=== PATIENT | female | born 1945 | race Caucasian/White ===

== ENCOUNTER 2019-02-03 11:35 | Inpatient (IN) | payer OTHER ==
[2019-02-03 12:43] VITALS: BMI 15.0
--- NOTE | 2019-02-03 13:02 | HP ---
"CIWA Score Nausea/Vomitin-No Nausea/No Vomiting Muscle Tremors: None Anxiety: 0-No Anxiety, at Ease Agitation: 1-Slight > Activity Paroxysmal Sweats: No Perspiration Orientation: 0-Oriented Tacttile Disturbances: 0-None Auditory Disturbances: 0-None Visual Disturbances: 0-None Headache: 0-None Present CIWA-Ar Total Score: 1 - Admission Criteria OASAS Guidelines: Admission for Medically Managed Detox: Requires at least one of the followin. CIWA greater than 12 2. Seizures within the past 24 hours 3. Delirium tremens within the past 24 hours 4. Hallucinations within the past 24 hours 5. Acute intervention needed for co occurring medical disorder 6. Acute intervention needed for co occurring psychiatric disorder 7. Severe withdrawal that cannot be handled at a lower level of care (continued vomiting, continued diarrhea, abnormal vital signs) requiring intravenous medication and/or fluids 8. Admission ROS [facility] Allergies/Adverse Reactions: Allergies Allergy/AdvReac Type Severity Reaction Status Date / Time pantoprazole [From Protonix] Allergy Severe Swelling Verified 02/03/19 12:20 Penicillins Allergy Severe Swelling Verified 02/03/19 12:20 History of Present Illness: This report was requested by: Janett Brooks | Reference #: [id number] Others' Prescriptions Patient Name: Anabell Shrestha Date: 1945 Address: [address] [place] [address] Sex: Female Rx Written Rx Dispensed Drug Quantity Days Supply Prescriber Name 01/01/2019 01/29/2019 zolpidem tartrate 10 mg tablet 30 30 Luis York 01/01/2019 01/01/2019 alprazolam 0.5 mg tablet 90 30 SangianLuis garcía 01/01/2019 01/01/2019 zolpidem tartrate 10 mg tablet 30 30 LavianliviLuis 07/11/2018 12/01/2018 tramadol hcl 50 mg tablet 60 30 SangianLuis garcía 07/11/2018 12/01/2018 zolpidem tartrate 10 mg tablet 30 30 Sangianricky, Luis 07/11/2018 11/02/2018 tramadol hcl 50 mg tablet 60 30 SangianLuis garcía 07/11/2018 11/02/2018 zolpidem tartrate 10 mg tablet 30 30 Luis York 10/28/2018 10/29/2018 hydrocodone-acetaminophen 5-300 mg tablet 20 5 Liborio Sharp MD 10/04/2018 10/06/2018 alprazolam 0.5 mg tablet 90 30 Lavianlivi, Luis 07/11/2018 10/02/2018 tramadol hcl 50 mg tablet 60 30 Lavianlivi , Luis 07/11/2018 10/02/2018 zolpidem tartrate 10 mg tablet 30 30 Lavianlivi, Luis 07/11/2018 09/06/2018 zolpidem tartrate 10 mg tablet 30 30 Lavianlivi, Luis 07/11/2018 08/24/2018 tramadol hcl 50 mg tablet 60 30 Lavianlivi , Luis 08/15/2018 08/15/2018 alprazolam 0.5 mg tablet 90 30 Lavianlivi, Luis 07/11/2018 08/08/2018 zolpidem tartrate 10 mg tablet 30 30 Lavianlivi, Luis 07/27/2018 07/27/2018 lyrica 75 mg capsule 10 5 Harley Arenas MD 07/11/2018 07/11/2018 tramadol hcl 50 mg tablet 60 30 Lavianlivi , Luis 07/11/2018 07/11/2018 zolpidem tartrate 10 mg tablet 30 30 Lavianlivi, Luis 07/11/2018 07/11/2018 alprazolam 0.5 mg tablet 90 30 Lavianlivi, Luis 01/15/2018 06/13/2018 zolpidem tartrate 10 mg tablet 30 30 Lavianlivi, Luis 01/15/2018 05/17/2018 zolpidem tartrate 10 mg tablet 30 30 Lavianlivi, Luis 05/16/2018 05/17/2018 tramadol hcl 50 mg tablet 90 30 Carine Rowellndra 04/25/2018 04/25/2018 tramadol hcl 50 mg tablet 60 30 Lavianlivi , Luis 04/25/2018 04/25/2018 alprazolam 0.5 mg tablet 90 30 Lavianlivi, Luis 01/15/2018 04/19/2018 zolpidem tartrate 10 mg tablet 30 30 Lavianlivi, Luis 01/15/2018 03/22/2018 zolpidem tartrate 10 mg tablet 30 30 Lavianlivi, Luis 03/20/2018 03/22/2018 tramadol hcl 50 mg tablet 10 3 Neto Luis Ferris MD 03/16/2018 03/17/2018 acetaminophen-cod #3 tablet 60 30 Bing Rubin (SARA) 02/27/2018 02/27/2018 diazepam 5 mg tablet 10 10 Sanghieuchhayache Luis 01/15/2018 02/21/2018 zolpidem tartrate 10 mg tablet 30 30 SanghieuLuis garcía 02/16/2018 02/16/2018 tramadol hcl 50 mg tablet 59 30 Bing Rubin (SARA) * - Drugs marked with an asterisk are compound drugs. If the compound drug is made up of more than one controlled substance, then each controlled substance will be a separate row in th pt here requesting assistance w/ overuse of AMbien , claims 1- mo supply finished in 2 weeks , denies seizurs, blackouts or tremors if not taking meds in the 2 remaining weeks until the next rx . Claims she is not taking Xanax . PMHx : gastritis, HTN , OP , constipation , chronic back pain pSHx : hemorrhoids , appy psych : insomnia Exam Limitations: No Limitations - Ebola screening Have you traveled outside of the country in the last 21 days: No (N) Have you had contact with anyone from an Ebola affected area: No Do you have a fever: No - Review of Systems Constitutional: No Symptoms Reported EENT: reports: Difficulty Swallowing (states saw ENT told nl, states sometimes has difficulty swallowing pills) Respiratory: reports: No Symptoms reported Cardiac: reports: No Symptoms Reported GI: reports: Poor Appetite : reports: No Symptoms Reported Musculoskeletal: reports: See HPI, Back Pain Integumentary: reports: No Symptoms Reported Neuro: reports: No Symptoms reported Endocrine: reports: No Symptoms Reported Psychiatric: reports: Orientated x3, Depressed Patient History - Smoking Cessation Smoking history: Smoker current status UNK - Substances abused Other Other (specify): aMBIEN 10MG PILLS Substance route: Oral Frequency: Daily Amount used: 6-10 PILLS OF 10MG Age of first use: 47 Date of last use: 02/03/19 Family Disease History - Family Disease History Family History: Denies Admission Physical Exam BHS - Vital Signs Vital Signs: Vital Signs - 24 hr 02/03/19 12:33 Temperature 97.9 F Pulse Rate 74 Respiratory 18 Rate Blood Pressure 101/67 - Physical General Appearance: Yes: Mild Distress, Cachetic, Thin HEENTM: Yes: Normocephalic, Normal Voice, Other (poor dentitiion, many missing teeth) Respiratory: Yes: Lungs Clear, Normal Breath Sounds, No Respiratory Distress, No Accessory Muscle Use Neck: Yes: No masses,lesions,Nodules, Trachea in good position Cardiology: Yes: Regular Rhythm, Regular Rate, S1, S2 Abdominal: Yes: Non Tender, Soft Musculoskeletal: Yes: Gait Steady Extremities: Yes: Normal Range of Motion, Non-Tender Neurological: Yes: Fully Oriented, Alert, Motor Strength 5/5 Integumentary: Yes: Warm - Diagnostic (1) Sedative, hypnotic or anxiolytic abuse Current Visit: Yes Status: Acute Breathalyzer - Breathalyzer Breathalyzer: 0 Inpatient Rehab Admission - Rehab Decision to Admit Inpatient rehab admission?: Yes - Initial Determination Are CD services needed?: Yes Free of communicable disease: Yes Not in need of hospitalization: Yes - Rehab Admission Criteria Previous failed treatment: No Poor recovery environment: No Comorbidities: No Lacks judgement: Yes Patient is meeting Inpatient Rehab admission criteria:: Yes"
[2019-02-03] MEDS ORDERED: guaiFENesin 200 MG/10 ML 10 ML UNIT-DOSE CUPS PO PRN (13:47)
[2019-02-03] MEDS ORDERED: ACETAMINOPHEN 325 MG TABLET (FP) PO PRN ×2 (13:47→21:15)
[2019-02-03] MEDS ORDERED: MENTHOL/PHENOL 1 EACH UD MM PRN (13:47)
[2019-02-03] MEDS ORDERED: IBUPROFEN 400 MG TABLET (FP) PO PRN (13:47)
[2019-02-03] MEDS ORDERED: MAG HYDROX/AL HYDROX/SIMETH 30 ML UNIT-DOSE CUP PO PRN (13:47)
[2019-02-03] MEDS ORDERED: P-EPHED 60MG/TRIPROLIDI 2.5MG TABLET PO PRN (13:47)
[2019-02-03] MEDS ORDERED: hydrOXYzine PAMOATE 25 MG CAPSULE (FP) PO PRN (13:47)
[2019-02-03] MEDS ORDERED: MAGNESIUM HYDROX 2400MG/30ML ORAL SUSPENSION 30 ML CUP PO PRN (13:47)
[2019-02-03] MEDS ORDERED: MAGNESIUM CITRATE 300 ML BOTTLE PO PRN (13:47)
[2019-02-03 20:21] LABS: PH,URINE 6.5 (5.0-8.0); URINE APPEARANCE CLEAR; URINE BILIRUBIN NEGATIVE (NEGATIVE); URINE COLOR YELLOW; URINE GLUCOSE (UA) NEGATIVE (NEGATIVE); URINE KETONE NEGATIVE (NEGATIVE); URINE LEUK ESTERASE NEGATIVE (NEGATIVE); URINE NITRITE NEGATIVE (NEGATIVE); URINE PROTEIN NEGATIVE (NEGATIVE); URINE UROBILINOGEN 0.2 mg/dL (0.2-1.0)
[2019-02-03] MEDS ORDERED: METHOCARBAMOL 500 MG TABLET PO ONE (21:14)
[2019-02-03] MEDS ORDERED: MELATONIN 5 MG TABLETS PO PRN (22:00)
[2019-02-03] MEDS ORDERED: THIAMINE HCL 100 MG TABLET (FP) PO SCH (22:00)
[2019-02-03] MEDS: METHYL SALICYLATE/MENTHOL OINT 30 GM TUBE TP SCH (22:46)
[2019-02-03] MEDS ORDERED: LORazepam 2 MG/ML SDV VIAL IM ONE (23:20)
--- NOTE | 2019-02-03 23:28 | PN ---
S CIWA - CIWA Score Nausea/Vomitin-No Nausea/No Vomiting Muscle Tremors: 5 Anxiety: 7-Acute Panic/Severe Agitation: 7-Pacing/Thrashing Paroxysmal Sweats: 3 Orientation: 1-Uncertain about Date Tacttile Disturbances: 0-None Auditory Disturbances: 0-None Visual Disturbances: 3-Moderate Sensitivity Headache: 4-Moderately Severe CIWA-Ar Total Score: 30 BHS Progress Note (SOAP) Subjective: C/O MUSCLE PAINS, SHAKES, CHILLS, BRIGHT FLASHING LIGHTS, RESTLESSNESS "I FEEL LIKE I WANT TO RUN OUT OF MY SKIN" Objective: 02/03/19 23:23 SEEN OOB PACING ROOM AND UNIT DEPRESSED AFFECT CRYING A/O X2 UNSURE OF DATE. BUT KNOWS MONTH AND YEAR LEAH WALLER CV -TACHY CIWA 30 REPEAT UDS- NEGATIVE FOR ALL SCREENED SUBSTANCES Vital Signs - 24 hr 02/03/19 02/03/19 02/03/19 12:33 14:37 17:43 Temperature 97.9 F 97.3 F L 96.7 F L Pulse Rate 74 90 83 Respiratory 18 18 18 Rate Blood Pressure 101/67 144/93 130/80 02/03/19 02/03/19 21:32 22:10 Temperature 97.3 F L 97.4 F L Pulse Rate 90 101 H Respiratory 18 16 Rate Blood Pressure 144/93 150/91 Assessment: 02/03/19 23:25 73 Y.O FEMALE ADMITTED TO REHAB FOR AMBIEN ( TAKING ANYWHERE FROM 8-12 10 MG PILLS A DAY) ADDICTION NOW PRESENTS WITH C/O WITHDRAWAL SXS'. SHE IS NOTED PACING ON THE UNIT, RESTLESS, CRYING, ANXIOUS AND PANIC C/O MUSCLE TIGHTNESS AND HEADACHE SHE WAS GIVEN VISTARIL 5 HOURS AGO WITH OUT RELIEF. TYLENOL AND ROBAXIN WAS ALSO GIVEN WITH OUT ANY EFFECT. Plan: DC VISTARIL CASE DISCUSSED WITH BENITA SHOEMAKER-PSYCH WILL GIVE ATIVAN 0.5 MG IM NOW AND REEVALUATE. IF SX'S ARE UNRESOLVED OR WORSEN WILL CONSIDER TRANSFERRING CLIENT TO [facility] CONTINUE TO MONITOR CLOSELY Q 15 MIN CHECKS X4 FOR FIRST HOUR OF THE ATIVAN. NOTIFY PROVIDER OF WORSENING SX'S
[2019-02-04] MEDS ORDERED: traZODone HCL 50 MG TABLET (FP) PO ONE (01:02)
--- NOTE | 2019-02-04 02:58 | PN ---
[facility] Progress Note Note: PATIENT SEEN FOR ONGOING COMPLAINTS OF RESTLESS NESS, BODY ACHES-NOT NEW. REQUESTING ALL KINDS OF MEDS, TRAMADOL, AN INJECTION, AND OTHERS. SHE IS ALSO SHARING THAT HER SON INJECTS SOME STUFF THAT KEEPS HIM CALM AND SHE THINKS IT HEROIN. SHE IS RELUCTANT TO TAKE MEDS OFFERED , STATES SHE HAS ANY ALLERGY TO MOTRIN-RASH. SHE IN NOTED CRYING WHEN SHE IS OFFERED ALTERNATIVE MEDS/THERAPY. ? DRUG SEEKING BEHAVIOR SHE CONTINUES TO SEEK TRAMADOL AND AMBIEN OR SOME SORT OF INJECTION. SHE PRESENTS A/O X3. CONVERSING WELL WITH CALMNESS, BUT STARTS TO COMPLAIN WHEN NOT ENGAGED IN CONVERSATION. SHE WAS GIVEN TRAZODONE 50 MG 2 HOURS AGO AND CLIENT IS STILL AWAKE CRYING AND PACING. SHE IS REQUESTING HER PAMELOR -RX'ED BY PAIN MGMT PER THE CLIENT. STATES IT HELPS WITH HER PAIN, ALLOWING HER TO SLEEP. RX IS NOTED IN HER HOME PROFILE AND CLIENT STATES ITS WITH HER PERSONAL PROPERTY. SHE IS TO BE EVALUATED BY PSYCH IN THE MORNING CONTINUE TO MONITOR CLIENT REMAINS MEDICALLY STABLE AT THIS TIME. DENIES SI. DOES REPORT SOME VISUAL DISTURBANCES BUT VERY SHORT LIVED. C/O SPOTS ON HER HANDS AND THINGS POPPING OUT OF HER ELBOWS. CLIENT DOES VERBALIZE THAT THEY ARE NOT PRESENT WHEN ASKED. PROVIDE EMOTIONAL SUPPORT/ENCOURAGEMENT MAINTAIN SAFETY. EKG ORDERED THERE IS NONE ON FILE
--- NOTE | 2019-02-04 07:48 | PN ---
[facility] Progress Note Note: SEEN THIS MORNING AMBULATING UNIT ENGAGED IN CONVERSATION WITH OTHER CLIENTS. NAD Vital Signs Temperature 96.7 F L 02/04/19 06:24 Pulse Rate 103 H 02/04/19 06:24 Respiratory Rate 18 02/04/19 06:24 Blood Pressure 168/98 02/04/19 06:24 O2 Sat by Pulse Oximetry (%) ELEVATED B/P NOTED- CLIENT MEDICALLY STABLE EKG- WNL CLIENT ENDORSED TO DR. SOUSA AND BENITA SHOEMAKER
--- NOTE | 2019-02-04 09:29 | CONSULT ---
[facility] Psychiatric Consult - Data Date of interview: 02/04/19 Admission source: [facility] Identifying data: Patient is a 73 year old female, mother of five, domiciled, and is supported by [facility]. This is patient's first admission to detox at [facility]. Patient admitted to for ambien dependence. Substance Abuse History: - Substances abused. Other. Other (specify): aMBIEN 10MG PILLS. Substance route: Oral. Frequency: Daily. Amount used: 6- 10 PILLS OF 10MG. Age of first use: 47. Date of last use: 02/03/19 Medical History: gastritis, HTN , OP , constipation , chronic back pain Psychiatric History: Patient denies h/o psychiatric hospitalization and suicide attempt. Patient reports taking ambien since 1992 and as of the previous 4-5 months she reports taking approximately 60-70 mg of ambien daily. She reports left abdominal pain which has prevented her from sleeping and therefore has caused her to increase her ambien intake. She reports being prescribed xanax last year by a physician at [facility] although denies currently taking xanax. Ms. Shrestha states that the xanax was ordered to address her anxiety when her blood pressure increases although denies h/o anxiety/panic disorder. (questionable historian about anxiety history as she has received several prescriptions of benzodiazepines). She reports seeing a psychiatrist one time two years ago but is unable to recall the medication she was prescribed. Patient reports being prescribed nortriptyline but denies ever taking the medication. Patient focused on her left lower abdomial pain throughout the assessment. At present, patient is restless, slightly irritable, anxious secondary to withdrawal symptoms from ambien. Patient is not psychotic and does not currently present with depressive symptoms. Patient focused on staff managing her pain and on receiving additional ambien at this time. Ms. Shrestha denies thoughts or urges to hurt herself or others. Physical/Sexual Abuse/Trauma History: Patient denies h/o physical, sexual and emotional trauma. Currently focused on addressing left lower abdominal pain. Mental Status Exam - Mental Status Exam Alert and Oriented to: Time, Place, Person Cognitive Function: Fair Patient Appearance: Well Groomed (although presents with a thin frame) Mood: Anxious, Irritable (slightly irritable) Affect: Mood Congruent Patient Behavior: Restless Speech Pattern: Delayed Voice Loudness: Moderately Soft/Quiet Thought Process: Goal Oriented Thought Disorder: Not Present Hallucinations: Denies Suicidal Ideation: Denies Homicidal Ideation: Denies Insight/Judgement: Poor Sleep: Poorly Appetite: Fair Muscle strength/Tone: Normal Gait/Station: Normal Psychiatric Findings - Problem List ([place] 1, 2,3) (1) Substance-induced anxiety disorder Status: Acute (2) Sedative, hypnotic or anxiolytic abuse Status: Acute - Initial Treatment Plan Initial Treatment Plan: Psychoeducation provided. Patient admitted to detox as no bed was available in rehab. Patient scheduled to be admitted to rehab. Recommendation: If admitted to rehab should consider an ambien taper.
[2019-02-04] MEDS ORDERED: PATIENT'S OWN MEDICATION (NON-FORMULARY) (Lansoprazole [Prevacid] 30 MG) PO SCH (10:00)
[2019-02-04] MEDS ORDERED: PRENATAL VITAMINS W/ FOLIC ACID TABLET (FP) PO SCH (10:00)
[2019-02-04] MEDS ORDERED: PATIENT'S OWN MEDICATION (NON-FORMULARY) (Enalapril Maleate [Vasotec] 20 MG) PO SCH (10:00)
[2019-02-04] MEDS ORDERED: amLODIPine BESYLATE 10 MG TABLET (FP) PO SCH (10:00)
[2019-02-04] MEDS ORDERED: ENALAPRIL MALEATE 10 MG TABLET (FP) PO SCH (10:00)
--- NOTE | 2019-02-04 10:03 | EKG ---
Test Reason : Blood Pressure : / mmHG Vent. Rate : 089 BPM Atrial Rate : 089 BPM P-R Int : 134 ms QRS Dur : 072 ms QT Int : 366 ms P-R-T Axes : 078 071 077 degrees QTc Int : 445 ms NORMAL SINUS RHYTHM NORMAL ECG NO PREVIOUS ECGS AVAILABLE Confirmed by DENISE MARINELLI, PERLA ([id number]) on 02/04/2019 10:02:37 AM Referred By: Maryellen Terry Confirmed By:PERLA WALKER MD
[2019-02-04 10:39] LABS: HEMATOCRIT 33.8 % (32.4-45.2); HEMOGLOBIN 11.7 GM/dL (10.7-15.3); MCH 31.8 pg (25.7-33.7); MCHC 34.5 g/dl (32.0-36.0); MEAN CELL VOLUME 92.2 fl (80-96); PLATELET COUNT 230 K/MM3 (134-434); RBC 3.66 M/mm3 (3.60-5.2); RDW 14.7 % (11.6-15.6); WHITE BLOOD COUNT 6.6 K/mm3 (4.0-10.0)
--- NOTE | 2019-02-04 10:50 | DS ---
[facility] Detox Discharge Summary Admission Date: 02/03/19 Discharge Date: 02/04/19 - History Additional Comments: 73 years old female admitted on 02/03/19 for ambient rehabilitation patient refuses rehab opportunity that she wants to go home patient c/o body pain, refuses to go to rehab revelation case presented in team meeting that the counselor reached daughter will seed cone picker patient around 1 pm today back to primary care provider for pain management patient stated that one of her daughter treats her bad and is inappropriate counselor call adult protection agency report the incident patient reported that one of her daughter "bernardino" very caring toward her counselor call "Bernardino" who arrived to [facility] to seed cone picker patient to home round 315pm patient discharged to home in care of bernardino the good daughter patient had one minute seizure with postdictal confusion no viable injury noted ambulance was called freelance copywriter attempted to give ER report x 3 around [phone] and 1538 no answer - Physical Exam Results Vital Signs: Vital Signs Temperature 97.6 F 02/04/19 09:10 Pulse Rate 102 H 02/04/19 09:10 Respiratory Rate 16 02/04/19 09:10 Blood Pressure 154/97 02/04/19 09:10 O2 Sat by Pulse Oximetry (%) Pertinent Admission Physical Exam Findings: ambient withdrawal sx Laboratory Last Values WBC 6.6 K/mm3 (4.0-10.0) 02/04/19 07:00 RBC 3.66 M/mm3 (3.60-5.2) 02/04/19 07:00 Hgb 11.7 GM/dL (10.7-15.3) 02/04/19 07:00 Hct 33.8 % (32.4-45.2) 02/04/19 07:00 MCV 92.2 fl (80-96) 02/04/19 07:00 MCH 31.8 pg (25.7-33.7) 02/04/19 07:00 MCHC 34.5 g/dl (32.0-36.0) 02/04/19 07:00 RDW 14.7 % (11.6-15.6) 02/04/19 07:00 Plt Count 230 K/MM3 (134-434) 02/04/19 07:00 MPV 8.0 fl (7.5-11.1) 02/04/19 07:00 Sodium 131 mmol/L (136-145) L 02/04/19 07:00 Potassium 3.6 mmol/L (3.5-5.1) 02/04/19 07:00 Chloride 92 mmol/L (98-107) L 02/04/19 07:00 Carbon Dioxide 34 mmol/L (21-32) H 02/04/19 07:00 Anion Gap 5 MMOL/L (8-16) L 02/04/19 07:00 BUN 16.5 mg/dL (7-18) 02/04/19 07:00 Creatinine 0.9 mg/dL (0.55-1.3) 02/04/19 07:00 Est GFR (CKD-EPI)AfAm 74.56 02/04/19 07:00 Est GFR (CKD-EPI)NonAf 64.33 02/04/19 07:00 Random Glucose 115 mg/dL (74-106) H 02/04/19 07:00 Calcium 9.6 mg/dL (8.5-10.1) 02/04/19 07:00 Total Bilirubin 0.5 mg/dL (0.2-1) 02/04/19 07:00 AST 28 U/L (15-37) 02/04/19 07:00 ALT 46 U/L (13-61) 02/04/19 07:00 Alkaline Phosphatase 103 U/L (45-117) 02/04/19 07:00 Total Protein 7.8 g/dl (6.4-8.2) 02/04/19 07:00 Albumin 4.7 g/dl (3.4-5.0) 02/04/19 07:00 Urine Color Yellow 02/03/19 14:55 Urine Appearance Clear 02/03/19 14:55 Urine pH 6.5 (5.0-8.0) 02/03/19 14:55 Ur Specific Sims 1.016 (1.010-1.035) 02/03/19 14:55 Urine Protein Negative (NEGATIVE) 02/03/19 14:55 Urine Glucose (UA) Negative (NEGATIVE) 02/03/19 14:55 Urine Ketones Negative (NEGATIVE) 02/03/19 14:55 Urine Blood Negative (NEGATIVE) 02/03/19 14:55 Urine Nitrite Negative (NEGATIVE) 02/03/19 14:55 Urine Bilirubin Negative (NEGATIVE) 02/03/19 14:55 Urine Urobilinogen 0.2 mg/dL (0.2-1.0) 02/03/19 14:55 Ur Leukocyte Esterase Negative (NEGATIVE) 02/03/19 14:55 POC Urine HCG, Qual Negative 02/03/19 21:38 RPR Titer Nonreactive (NONREACTIVE) 02/04/19 07:00 lab noted - Treatment Hospital Course: Detox Protocol Followed, Detoxed Safely, Responded well, Discharged Condition Good, Rehab Referral Accepted Patient has Accepted a Rehab Referral to: return home with Bernardino - Medication Discharge Medications: Ambulatory Orders Amlodipine Besylate 10 mg PO DAILY 02/03/19 Cholecalciferol (Vitamin D3) [Vitamin D3] 5,000 unit PO DAILY 02/03/19 Enalapril Maleate [Vasotec] 20 mg PO DAILY 02/03/19 Lansoprazole [Prevacid] 30 mg PO DAILY 02/03/19 Metoprolol Succinate [Toprol Xl -] 50 mg PO DAILY 02/03/19 Nortriptyline HCl [Pamelor -] 50 mg PO HS 02/03/19 Zolpidem Tartrate [Ambien] 10 mg PO DAILY 02/03/19 traMADol HCL [Ultram -] 50 mg PO BID 02/03/19 - Diagnosis (1) Hypertension Current Visit: Yes Status: Chronic (2) Chronic pain Current Visit: Yes Status: Chronic Qualifiers: Chronic pain type: other chronic pain Qualified Code(s): G89.29 - Other chronic pain (3) GERD (gastroesophageal reflux disease) Current Visit: Yes Status: Chronic Qualifiers: Esophagitis presence: without esophagitis Qualified Code(s): K21.9 - Gastro -esophageal reflux disease without esophagitis (4) Insomnia disorder Current Visit: Yes Status: Chronic Qualifiers: Insomnia type: unspecified Qualified Code(s): G47.00 - Insomnia, unspecified (5) Ambien use disorder, mild, abuse Current Visit: Yes Status: Chronic - AMA Did Patient Leave Against Medical Advice: No
[2019-02-04 10:54] LABS: ALBUMIN 4.7 g/dl (3.4-5.0); BILIRUBIN,TOTAL 0.5 mg/dL (0.2-1); BLOOD UREA NITROGEN 16.5 mg/dL (7-18); CALCIUM 9.6 mg/dL (8.5-10.1); CREATININE 0.9 mg/dL (0.55-1.3); POTASSIUM 3.6 mmol/L (3.5-5.1); TOT PROT 7.8 g/dl (6.4-8.2)
[2019-02-04] MEDS: METHYL SALICYLATE/MENTHOL OINT 30 GM TUBE TP SCH (13:24)
[2019-02-04 13:47] VITALS: BP 163/102; PULSE 87; TEMP 97.7
[2019-02-04] MEDS ORDERED: LIDOCAINE 5% TOPICAL PATCH TP SCH (14:15)
[2019-02-04] MEDS ORDERED: LIDOCAINE PATCH REMOVAL MC SCH (22:00)
== END 2019-02-04 15:00 | disposition home or self-care (01) | DRG 897 ==
LOC: YASAS 11:35 → Y3N 14:16
PROVIDERS: ADMIT Surgery; ATTEND Surgery
PROC: HZ2ZZZZ Detoxification Services for Substance Abuse Treatment (ICD-10-PCS; principal; 2019-02-03)
DX: F13.230 Sedative, hypnotic or anxiolytic dependence with withdrawal, uncomplicated (principal); F19.280 Other psychoactive substance dependence with psychoactive substance-induced anxiety disorder; I10 Essential (primary) hypertension; M54.9 Dorsalgia, unspecified; G89.29 Other chronic pain; K21.9 Gastro-esophageal reflux disease without esophagitis; G47.00 Insomnia, unspecified; Z88.0 Allergy status to penicillin
CPT/HCPCS: 36415; 80053; 81003; 81025; 85027; 86593; 93005; 93010

== ENCOUNTER 2019-02-04 16:02 | Inpatient (IN) | payer OTHER ==
--- NOTE | 2019-02-04 16:46 | PDOC ---
Attending Attestation - Resident Resident Name: AnabellMichael - ED Attending Attestation I have performed the following: I have examined & evaluated the patient, The case was reviewed & discussed with the resident, I agree w/resident's findings & plan, Exceptions are as noted - HPI HPI: 02/04/19 16:43 73 yo female BIBA from [facility] detox after having a seizure/ She also has c/o chest pain cachetic ,alert 73 yo female head ncat eyes melodie eomi neck no midline tenderness lungs cta b/l cvs [id number] extremities no deformities skin warm and dry neuro alert,conversant,moving all extremities - Physicial Exam PE: 02/05/19 02:20 please see physical exam above - Medical Decision Making 02/04/19 16:46 73 yo female w h/o ambien dependence had a szs while being weaned from ambien 02/04/19 18:15 patient did have her labs drawn earlier today at [facility] and these lab findings were reviewed. Since the patient started to have complaint of chest pain. Cardiac enzymes and EKG will be pursued 02/04/19 21:04 first troponin was negative pt is behaving very altered and has been taken to radiology for ct scan of head ,will obtain urine tox screen also
--- NOTE | 2019-02-04 17:09 | PDOC ---
History of Present Illness - General Chief Complaint: Seizure Stated Complaint: SEIZURE Time Seen by Provider: 02/04/19 16:42 History Source: Patient Exam Limitations: No Limitations - History of Present Illness Initial Comments: 73 yo F with a hx of gastritis, HTN, osteoporosis, and insomnia (on zanatax) presents to the emergency department from [facility] after a seizure event that was witnessed lasting for 1 minute. Per the records, the patient was brought to [facility] yesterday for benzo detoxification. The patient did not wish to stay for rehabilitation and was to be discharged from [facility]. Patient did not hit her head. Denies hx of seizures. The patient 02/05/19 00:23 02/05/19 00:36 Past History - Past Medical History Allergies/Adverse Reactions: Allergies Allergy/AdvReac Type Severity Reaction Status Date / Time pantoprazole [From Protonix] Allergy Severe Swelling Verified 02/04/19 16:41 Penicillins Allergy Severe Swelling Verified 02/04/19 16:41 Home Medications: Ambulatory Orders Amlodipine Besylate 10 mg PO DAILY 02/03/19 Cholecalciferol (Vitamin D3) [Vitamin D3] 5,000 unit PO DAILY 02/03/19 Enalapril Maleate [Vasotec] 20 mg PO DAILY 02/03/19 Lansoprazole [Prevacid] 30 mg PO DAILY 02/03/19 Metoprolol Succinate [Toprol Xl -] 50 mg PO DAILY 02/03/19 Nortriptyline HCl [Pamelor -] 50 mg PO HS 02/03/19 Zolpidem Tartrate [Ambien] 10 mg PO DAILY 02/03/19 traMADol HCL [Ultram -] 50 mg PO BID 02/03/19 Asthma: No Cardiac Disorders: No COPD: No Diabetes: No GI Disorders: Yes Disorders: No HTN: Yes Kidney Stones: Yes Seizures: No - Surgical History Abdominal Surgery: No Appendectomy: Yes (at 32 years old) Cardiac Surgery: No Cholecystectomy: No Lung Surgery: No Neurologic Surgery: No Orthopedic Surgery: No - Suicide/Smoking/Psychosocial Hx Smoking History: Never smoked Have you smoked in the past 12 months: No Information on smoking cessation initiated: No Hx Alcohol Use: No Drug/Substance Use Hx: No Hx Substance Use Treatment: No *Physical Exam - Vital Signs Last Vital Signs Temp Pulse Resp BP Pulse Ox 98.4 F 84 16 145/93 100 02/04/19 16:10 02/04/19 16:10 02/04/19 16:10 02/04/19 16:10 02/04/19 16:10 ED Treatment Course - RADIOLOGY Radiology Studies Ordered: Category Date Time Status HEAD CT WITHOUT CONTRAST [CT] Stat CT Scan 02/04/19 17:00 Ordered
[2019-02-04 22:56] LABS: EPI CELLS 1.4 /HPF (0-5/HPF); HYALINE CASTS 1 /lpf (0-8); PH,URINE 7.5 (5.0-8.0); URINE APPEARANCE CLEAR; URINE BACTERIA 15.2 /hpf (NEGATIVE); URINE BILIRUBIN NEGATIVE (NEGATIVE); URINE COLOR YELLOW; URINE GLUCOSE (UA) NEGATIVE (NEGATIVE); URINE KETONE NEGATIVE (NEGATIVE); URINE LEUK ESTERASE NEGATIVE (NEGATIVE); URINE NITRITE NEGATIVE (NEGATIVE); URINE PROTEIN 2+ (NEGATIVE); URINE RBC 1 /hpf (0-4); URINE UROBILINOGEN 0.2 mg/dL (0.2-1.0); URINE WBC 1 /hpf (0-5)
[2019-02-04 23:19] LABS: COCAINE, UR NEGATIVE ng/ml (CUTOFF=300); METHADONE, UR NEGATIVE ng/ml (CUTOFF=300); OPIATES, URI NEGATIVE ng/ml (CUTOFF=300); PHENCYCLIDINE,URINE NEGATIVE ng/ml (CUTOFF=25); URINE AMPHETAMINES NEGATIVE ng/ml (CUTOFF=500); URINE BARBITURATES NEGATIVE ng/ml (CUTOFF=200)
[2019-02-04 23:28] LABS: URINE BENZODIAZEPINES POSITIVE ng/ml (CUTOFF=200)
[2019-02-05] MEDS ORDERED: clonazePAM 0.5 MG TABLET PO ONE (00:47)
[2019-02-05] MEDS ORDERED: clonazePAM 0.5 MG TABLET ONE (00:59)
[2019-02-05] MEDS ORDERED: SODIUM CHLORIDE 1,000 ML IV SCH (01:30)
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
[2019-02-05 02:23] LABS: ALLENS TEST POSITIVE
[2019-02-05 02:27] LABS: ARTERIAL BLD GAS O2 SATURATION 98.7 % (95-98); ARTERIAL BLOOD GAS BASE EXCESS 7.4 meq/l (-2-2); ARTERIAL BLOOD GAS PCO2 38.6 mmHg (35-45); ARTERIAL BLOOD GAS PO2 99.4 mmHg (80-105); ARTERIAL BLOOD GAS pH 7.51 (7.35-7.45)
[2019-02-05] MEDS: SODIUM CHLORIDE 1,000 ML IV SCH ×2 (02:50→08:46)
[2019-02-05 08:16] LABS: BASO % 0.6 % (0-2.0); EOS % 0.1 % (0-4.5); HEMATOCRIT 32.1 % (32.4-45.2); LYMPH % 16.5 % (8-40); MCH 31.8 pg (25.7-33.7); MCHC 34.3 g/dl (32.0-36.0); MEAN CELL VOLUME 92.5 fl (80-96); MEAN PLT VOLUME 7.4 fl (7.5-11.1); MONO % 9.1 % (3.8-10.2); NEUT % 73.7 % (42.8-82.8); RBC 3.47 M/mm3 (3.60-5.2); RDW 14.7 % (11.6-15.6); WHITE BLOOD COUNT 7.4 K/mm3 (4.0-10.0)
[2019-02-05 08:47] LABS: ALBUMIN 3.9 g/dl (3.4-5.0); BILIRUBIN,TOTAL 0.9 mg/dL (0.2-1); BLOOD UREA NITROGEN 14.8 mg/dL (7-18); CALCIUM 9.1 mg/dL (8.5-10.1); CREATININE 0.7 mg/dL (0.55-1.3); POTASSIUM 3.3 mmol/L (3.5-5.1); TOT PROT 6.8 g/dl (6.4-8.2)
[2019-02-05] MEDS ORDERED: POTASSIUM CHLORIDE TABS 20 MEQ TABLET.ER (FP) PO ONE ×2 (09:30→10:03)
[2019-02-05] MEDS: ENOXAPARIN NA (PORCINE) 40 MG/0.4 ML DISP.SYRIN SQ SCH (09:38)
[2019-02-05 09:47] LABS: PLATELET COUNT 217 K/MM3 (134-434)
[2019-02-05] MEDS ORDERED: chlordiazePOXIDE HCL 10 MG CAPSULE PO PRN (10:02)
[2019-02-05] MEDS: chlordiazePOXIDE HCL 25 MG CAPSULE PO SCH ×2 (13:29→21:39)
[2019-02-05] MEDS ORDERED: chlordiazePOXIDE HCL 25 MG CAPSULE ONE ×2 (13:29→20:36)
--- NOTE | 2019-02-05 15:48 | PN ---
Teaching Attending Note Name of Resident: Shay Kerr ATTENDING PHYSICIAN STATEMENT I saw and evaluated the patient. I reviewed the resident's note and discussed the case with the resident. I agree with the resident's findings and plan as documented. SUBJECTIVE: No fever or chills. no PINO . feels tired. CP ro SOB. no abd pain. but feels pressure in lower abd. reported pain with urination to the resident, but by further questioning, she meant the suprapubic pain and pressure . reports having a son and 2 daughters in [place]. she does feel safe at home. she does not feel threatened by her kids . No one in mistreating her or giving her drugs/meds /injections . reports taking lots of ambien every day OBJECTIVE: NAD , awake, alert. Lungs: CTAB CV: RRR Abd: soft, discomfort in suprapubic discomfort. bladder is palpated in suprapubic area, 2 cm below the umbilicus. Ext : no edema Neuro: EOMI, round equal pupils, reactive to light. no facial droop. strength 5/ 5 in upper and lower extremities proximally and distally. reflexes 1+ biceps and knee jerk b/l. Nl sensation to light touch. ASSESSMENT AND PLAN: 73 y/o lady with h/o HTN, GERD, gastritis, insomnia, she went to [facility] , and while planning to admit to rehab she had a witnessed seizure. 1- Seizure: suspect benzo withdrawal. Nl neuro exam now. awake. - hold off AED _ neuro consult - if neuro feels MRI is necessary , will obtain - start detox for Benzos - RPR neg . TSH NL 2- Substance abuse: - start Librium taper - cont to monitor - [place] not give ambien 3- Suprapbubic discomfort. distended bladder on CT scan. - will obtain bladder scan. - if retention is detected, then will place a anderson. - no evidence of UTI 4- elevated CPK, mild rhabdo, due to seizure activity. - IVF 5- H/o HTN: resume her home BP meds 6- DVT PX : Lovenox when ready, can return to [facility]
--- NOTE | 2019-02-05 16:46 | CON.NEURO ---
Consult - Alcohol/Substance Use Hx Alcohol Use: No - Smoking History Smoking history: Never smoked Have you smoked in the past 12 months: No Home Medications - Allergies Allergies/Adverse Reactions: Allergies Allergy/AdvReac Type Severity Reaction Status Date / Time pantoprazole [From Protonix] Allergy Severe Swelling Verified 02/04/19 16:41 Penicillins Allergy Severe Swelling Verified 02/04/19 16:41 - Home Medications Home Medications: Ambulatory Orders Amlodipine Besylate 10 mg PO DAILY 02/03/19 Cholecalciferol (Vitamin D3) [Vitamin D3] 5,000 unit PO DAILY 02/03/19 Enalapril Maleate [Vasotec] 20 mg PO DAILY 02/03/19 Lansoprazole [Prevacid] 30 mg PO DAILY 02/03/19 Metoprolol Succinate [Toprol Xl -] 50 mg PO DAILY 02/03/19 Nortriptyline HCl [Pamelor -] 50 mg PO HS 02/03/19 Zolpidem Tartrate [Ambien] 10 mg PO DAILY 02/03/19 traMADol HCL [Ultram -] 50 mg PO BID 02/03/19 Alprazolam 0.5 mg PO TID 02/05/19 Amitriptyline HCl [Elavil -] 25 mg PO DAILY 02/05/19 Tizanidine HCl 2 mg PO BID 02/05/19 Physical Exam-Neuro Vital Signs: Vital Signs Temperature 98.3 F 02/05/19 15:15 Pulse Rate 88 02/05/19 15:15 Respiratory Rate 18 02/05/19 07:45 Blood Pressure 140/85 02/05/19 15:15 O2 Sat by Pulse Oximetry (%) 100 02/05/19 15:15 Labs: CBC, BMP 02/05/19 07:46 02/05/19 07:46 Assessment/Plan CC New onset seizure HPI 73 Year old female history of HTN, Gastritis, Osteoporosis, insomnia. [place] takes ambien everyday and [facility] She was in there for ambien abuse. Paitent take 6-10 pills per day. Patient also uses tramadol. Patient has one episode of shaking , chills like feeling , and seizure lasted one minute. SH edid not have any tongue bite or incontinence. No account of post ictal confusion. Patient has ct head and it unremrakable. Patient never had any brain truma, encephalomalacia, no seizure or stroke in past. PAST MEDICAL HISTORY: Gastritis, HTN, osteoporosis, insomnia, GERD, hemorrhoids PAST SURGICAL HISTORY: Appendectomy and hemorrhoid related surgery Social History: Smoking: Unable to obtain Alcohol:Unable to obtain Drugs: Documented abuse of Zolpidem, Xanax, Tramadol Family History: Unable to obtain Allergies pantoprazole [From Protonix] Allergy (Severe, Verified 02/04/19 16:41) Swelling Penicillins Allergy (Severe, Verified 02/04/19 16:41) Swelling HOME MEDICATIONS: Home Medications Medication Instructions Recorded Amlodipine Besylate 10 mg PO DAILY 02/03/19 Cholecalciferol (Vitamin D3) 5,000 unit PO DAILY 02/03/19 [Vitamin D3] Enalapril Maleate [Vasotec] 20 mg PO DAILY 02/03/19 Lansoprazole [Prevacid] 30 mg PO DAILY 02/03/19 Metoprolol Succinate [Toprol Xl -] 50 mg PO DAILY 02/03/19 Nortriptyline HCl [Pamelor -] 50 mg PO HS 02/03/19 Zolpidem Tartrate [Ambien] 10 mg PO DAILY 02/03/19 traMADol HCL [Ultram -] 50 mg PO BID 02/03/19 ROS, FH is Unremarkable Neurological examiantion Alert oriented x 3, neck is supple eomi, pupils reactive, no face asymmetry moving all ext sensation is normal ct head unremarkable Assessment/Plan 73 year old female history of substance abuse and recently had ambien withdrawal. Most likley withdrawal leading to seizure. Patient would not require halfway AED. Plan: no need for AED - mri of brain can be obtained, and dont need to hold in hospital for mri and eeg - ambien withdrawal as per primary or psychiatry - will continue to follow , if patient is in hospital - Seizure precautiosn were discussedwith patient Thanking you so much Vikash Latif MD
--- NOTE | 2019-02-05 17:35 | PN ---
Physical Exam: SUBJECTIVE: Patient seen and examined by the bedside. OBJECTIVE: Vital Signs Period Temp Pulse Resp BP Sys/Quispe Pulse Ox Last 24 Hr 98.1 F-99.2 F 80-88 - 126-140/75-86 98-100 GENERAL: The patient is awake, alert, and fully oriented, in no acute distress. HEAD: Normal with no signs of trauma. EYES: PERRL, extraocular movements intact, sclera anicteric, conjunctiva clear. No ptosis. NECK: Trachea midline, full range of motion, supple. LUNGS: Decreased breath sounds B/L HEART: Regular rate and rhythm, S1, S2 without murmur, rub or gallop. ABDOMEN: Soft, mild tenderness in suprapubic region, distended EXTREMITIES: 2+ pulses, warm, well-perfused, no edema. NEUROLOGICAL: Cranial nerves II through XII grossly intact. Normal speech, gait not observed, 5/5 motor strength B/L PSYCH: Normal mood, normal affect. Laboratory Results - last 24 hr 02/04/19 02/04/19 02/04/19 17:42 22:30 22:30 WBC RBC Hgb Hct MCV MCH MCHC RDW Plt Count MPV Absolute Neuts (auto) Neutrophils % Lymphocytes % Monocytes % Eosinophils % Basophils % Nucleated RBC % Anticoagulation Therapy Puncture Site ABG pH ABG pCO2 at Pt Temp ABG pO2 at Pt Temp ABG HCO3 ABG O2 Sat (Measured) ABG O2 Content ABG Base Excess Franck Test O2 Delivery Device Oxygen Flow Rate Vent Mode Vent Rate Mechanical Rate Pressure Support Vent Sodium Potassium Chloride Carbon Dioxide Anion Gap BUN Creatinine Est GFR (CKD-EPI)AfAm Est GFR (CKD-EPI)NonAf Random Glucose Serum Osmolality Lactic Acid Calcium Magnesium Total Bilirubin AST ALT Alkaline Phosphatase Creatine Kinase 554 H Creatine Kinase Index 2.2 CK-MB (CK-2) 12.3 H Troponin I < 0.02 Total Protein Albumin TSH Urine Color Yellow Urine Appearance Clear Urine pH 7.5 Ur Specific [place] 1.008 L Urine Protein 2+ H Urine Glucose (UA) Negative Urine Ketones Negative Urine Blood 2+ H Urine Nitrite Negative Urine Bilirubin Negative Urine Urobilinogen 0.2 Ur Leukocyte Esterase Negative Urine WBC (Auto) 1 Urine RBC (Auto) 1 Urine Casts (Auto) 1 U Epithel Cells (Auto) 1.4 Urine Bacteria (Auto) 15.2 Salicylates Opiates Screen Negative Methadone Screen Negative Acetaminophen Barbiturate Screen Negative Phencyclidine Screen Negative Ur Amphetamines Screen Negative MDMA (Ecstasy) Screen Negative Benzodiazepines Screen Positive A* Cocaine Screen Negative U Marijuana (THC) Screen Negative 02/05/19 02/05/19 02/05/19 02:17 03:22 03:22 WBC RBC Hgb Hct MCV MCH MCHC RDW Plt Count MPV Absolute Neuts (auto) Neutrophils % Lymphocytes % Monocytes % Eosinophils % Basophils % Nucleated RBC % Anticoagulation Therapy No Result Required. Puncture Site Right radial ABG pH 7.51 H ABG pCO2 at Pt Temp 38.6 ABG pO2 at Pt Temp 99.4 ABG HCO3 30.7 H ABG O2 Sat (Measured) 98.7 H ABG O2 Content 15.8 ABG Base Excess 7.4 H Franck Test Positive O2 Delivery Device Room air Oxygen Flow Rate 21% Vent Mode No Result Required. Vent Rate No Result Required. Mechanical Rate No Result Required. Pressure Support Vent No Result Required. Sodium Potassium Chloride Carbon Dioxide Anion Gap BUN Creatinine Est GFR (CKD-EPI)AfAm Est GFR (CKD-EPI)NonAf Random Glucose Serum Osmolality Lactic Acid 1.2 Calcium Magnesium Total Bilirubin AST ALT Alkaline Phosphatase Creatine Kinase 745 H Creatine Kinase Index 1.5 CK-MB (CK-2) 11.0 H Troponin I Total Protein Albumin TSH Urine Color Urine Appearance Urine pH Ur Specific [place] Urine Protein Urine Glucose (UA) Urine Ketones Urine Blood Urine Nitrite Urine Bilirubin Urine Urobilinogen Ur Leukocyte Esterase Urine WBC (Auto) Urine RBC (Auto) Urine Casts (Auto) U Epithel Cells (Auto) Urine Bacteria (Auto) Salicylates Opiates Screen Methadone Screen Acetaminophen Barbiturate Screen Phencyclidine Screen Ur Amphetamines Screen MDMA (Ecstasy) Screen Benzodiazepines Screen Cocaine Screen U Marijuana (THC) Screen 02/05/19 02/05/19 02/05/19 03:22 03:22 03:22 WBC RBC Hgb Hct MCV MCH MCHC RDW Plt Count MPV Absolute Neuts (auto) Neutrophils % Lymphocytes % Monocytes % Eosinophils % Basophils % Nucleated RBC % Anticoagulation Therapy Puncture Site ABG pH ABG pCO2 at Pt Temp ABG pO2 at Pt Temp ABG HCO3 ABG O2 Sat (Measured) ABG O2 Content ABG Base Excess Franck Test O2 Delivery Device Oxygen Flow Rate Vent Mode Vent Rate Mechanical Rate Pressure Support Vent Sodium Potassium Chloride Carbon Dioxide Anion Gap BUN Creatinine Est GFR (CKD-EPI)AfAm Est GFR (CKD-EPI)NonAf Random Glucose Serum Osmolality 287 Lactic Acid Calcium Magnesium Total Bilirubin AST ALT Alkaline Phosphatase Creatine Kinase Creatine Kinase Index CK-MB (CK-2) 11.0 H Troponin I Total Protein Albumin TSH Urine Color Urine Appearance Urine pH Ur Specific [place] Urine Protein Urine Glucose (UA) Urine Ketones Urine Blood Urine Nitrite Urine Bilirubin Urine Urobilinogen Ur Leukocyte Esterase Urine WBC (Auto) Urine RBC (Auto) Urine Casts (Auto) U Epithel Cells (Auto) Urine Bacteria (Auto) Salicylates < 1.7 L Opiates Screen Methadone Screen Acetaminophen < 2.0 L Barbiturate Screen Phencyclidine Screen Ur Amphetamines Screen MDMA (Ecstasy) Screen Benzodiazepines Screen Cocaine Screen U Marijuana (THC) Screen 02/05/19 02/05/19 02/05/19 07:46 07:46 11:50 WBC 7.4 RBC 3.47 L Hgb 11.0 Hct 32.1 L MCV 92.5 MCH 31.8 MCHC 34.3 RDW 14.7 Plt Count 217 MPV 7.4 L Absolute Neuts (auto) 5.5 Neutrophils % 73.7 Lymphocytes % 16.5 Monocytes % 9.1 Eosinophils % 0.1 Basophils % 0.6 Nucleated RBC % 0 Anticoagulation Therapy Puncture Site ABG pH ABG pCO2 at Pt Temp ABG pO2 at Pt Temp ABG HCO3 ABG O2 Sat (Measured) ABG O2 Content ABG Base Excess Franck Test O2 Delivery Device Oxygen Flow Rate Vent Mode Vent Rate Mechanical Rate Pressure Support Vent Sodium 138 Potassium 3.3 L Chloride 99 Carbon Dioxide 30 Anion Gap 9 BUN 14.8 Creatinine 0.7 Est GFR (CKD-EPI)AfAm 101.03 Est GFR (CKD-EPI)NonAf 87.17 Random Glucose 87 Serum Osmolality Lactic Acid Calcium 9.1 Magnesium 2.0 Total Bilirubin 0.9 AST 33 ALT 34 Alkaline Phosphatase 97 Creatine Kinase 666 H Creatine Kinase Index 1.2 CK-MB (CK-2) 8.1 H Troponin I Total Protein 6.8 Albumin 3.9 TSH 0.38 Urine Color Urine Appearance Urine pH Ur Specific [place] Urine Protein Urine Glucose (UA) Urine Ketones Urine Blood Urine Nitrite Urine Bilirubin Urine Urobilinogen Ur Leukocyte Esterase Urine WBC (Auto) Urine RBC (Auto) Urine Casts (Auto) U Epithel Cells (Auto) Urine Bacteria (Auto) Salicylates Opiates Screen Methadone Screen Acetaminophen Barbiturate Screen Phencyclidine Screen Ur Amphetamines Screen MDMA (Ecstasy) Screen Benzodiazepines Screen Cocaine Screen U Marijuana (THC) Screen 02/05/19 11:50 WBC RBC Hgb Hct MCV MCH MCHC RDW Plt Count MPV Absolute Neuts (auto) Neutrophils % Lymphocytes % Monocytes % Eosinophils % Basophils % Nucleated RBC % Anticoagulation Therapy Puncture Site ABG pH ABG pCO2 at Pt Temp ABG pO2 at Pt Temp ABG HCO3 ABG O2 Sat (Measured) ABG O2 Content ABG Base Excess Franck Test O2 Delivery Device Oxygen Flow Rate Vent Mode Vent Rate Mechanical Rate Pressure Support Vent Sodium Potassium Chloride Carbon Dioxide Anion Gap BUN Creatinine Est GFR (CKD-EPI)AfAm Est GFR (CKD-EPI)NonAf Random Glucose Serum Osmolality Lactic Acid Calcium Magnesium Total Bilirubin AST ALT Alkaline Phosphatase Creatine Kinase Creatine Kinase Index CK-MB (CK-2) Cancelled Troponin I Total Protein Albumin TSH Urine Color Urine Appearance Urine pH Ur Specific [place] Urine Protein Urine Glucose (UA) Urine Ketones Urine Blood Urine Nitrite Urine Bilirubin Urine Urobilinogen Ur Leukocyte Esterase Urine WBC (Auto) Urine RBC (Auto) Urine Casts (Auto) U Epithel Cells (Auto) Urine Bacteria (Auto) Salicylates Opiates Screen Methadone Screen Acetaminophen Barbiturate Screen Phencyclidine Screen Ur Amphetamines Screen MDMA (Ecstasy) Screen Benzodiazepines Screen Cocaine Screen U Marijuana (THC) Screen Active Medications Generic Name Dose Route Start Last Admin Trade Name Freq PRN Reason Stop Dose Admin Chlordiazepoxide HCl 10 mg 02/08/19 00:00 Librium - PO 02/08/19 23:59 Q12H PRN Signs/symptoms of Withdrawal Chlordiazepoxide HCl 10 mg 02/05/19 10:02 Librium - PO 02/07/19 23:59 Q8H PRN Signs/symptoms of Withdrawal Chlordiazepoxide HCl 25 mg 02/05/19 13:00 02/05/19 13:29 Librium - PO 02/06/19 21:01 25 mg Q8H [facility] Administration Chlordiazepoxide HCl 15 mg 02/07/19 05:00 Librium - PO 02/07/19 21:01 Q8H [facility] Chlordiazepoxide HCl 10 mg 02/08/19 05:00 Librium - PO 02/08/19 21:01 Q8H [facility] Chlordiazepoxide HCl 10 mg 02/09/19 05:00 Librium - PO 02/09/19 05:01 ONCE ONE Enoxaparin Sodium 40 mg 02/05/19 10:00 02/05/19 09:38 Lovenox - SQ 40 mg DAILY [facility] Administration Sodium Chloride 1,000 mls @ 60 mls/hr 02/05/19 02:04 02/05/19 08:46 Normal Saline - IV 60 mls/hr ASDIR [facility] Administration Polyethylene Glycol 17 gm 02/06/19 10:00 Miralax (For Daily Use) - PO DAILY [facility] Med Hx: 30 Ambien 10mg 5-6 pills a night for the past few weeks 90 .5mg xanax refills in last month(claims she hasn't used any in 4 years) 60 tramadol few per week for generalized pain, 4-5 years ASSESSMENT/PLAN: 73F with PMH of gastritis, GERD, HTN, osteoporosis, insomnia who presented to the hospital after a witnessed seizure at [facility], sbdominal pain, and dysuria. Lasted 1 minute, was witnessed, Admitted to [facility] on 02/03 for ambien abuse, takes 6-10 10 mg pills a day. Last benzo was 0.5 mg ativan 02/03 Of note while at [facility] the night of 02/03 she was noted to be pacing the room and complaining of muscle pains, shakes, chills, and the bright lights disturbing her. Abdominal pain is in the suprapubic region, started 5 days ago, intensity is 7/ 10, pain is described as 'pushing', is constant in nature, and radiates to the back back. Dysuria is noted at the end of her stream, and there is no associated hematuria or pyuria. ER events: (1)EKG (2)CXR CT chest were normal CT Abdomen and Pelvis showed B/L caliectasis in kidneys likely secondary to dilated urinary bladder. (3)Was given 1mg Klonopin # Seizure, initial episode -Klonopin 1 mg PO -EKG -Mg, TSH, -Neuro consult, MRI, EEG -seizure precautions #Abuse/withdrawal -Urine tox Benzo + -Librium protocol started, may be completed at [facility] once stable. #Dysuria -UA: Protein 2+, blood 2+ -Post void scan pending # Met Alkalosis -ABG: pH H 7.51, HCO3 H 30.7, CO2 n 38.6 # Suspected Rhabdomyelosis -CK 554-754, CKMB 11-12.3, Urine blood 2+ -Follow CK, CKMB # Constipation -Miralax #FEN -N/S #DVT Prop -Lovenox 40mg -Early ambulation Visit type - Emergency Visit Emergency Visit: Yes ED Registration Date: 02/05/19 Care time: The patient presented to the Emergency Department on the above date and was hospitalized for further evaluation of their emergent condition. - New Patient This patient is new to me today: Yes Date on this admission: 02/05/19 - Critical Care Critical Care patient: No - Discharge Referral Referred to [facility] Med P.C.: No ATTENDING PHYSICIAN STATEMENT I saw and evaluated the patient. I reviewed the resident's note and discussed the case with the resident. I agree with the resident's findings and plan as documented. SUBJECTIVE: OBJECTIVE: ASSESSMENT AND PLAN:
[2019-02-05] MEDS ORDERED: BISACODYL 10 MG SUPP.RECT PR ONE (19:00)
[2019-02-05] MEDS ORDERED: POLYETHYLENE GLYCOL 3350 119 GM BTL PO ONE (19:00)
[2019-02-05] MEDS ORDERED: SENNOSIDES/DOCUSATE COMBO (SENNA PLUS) TABLET (UD) PO PRN (19:00)
[2019-02-05] MEDS ORDERED: BISACODYL 10 MG SUPP.RECT RC ONE (20:36)
[2019-02-06] MEDS: SODIUM CHLORIDE 1,000 ML IV SCH (01:00)
[2019-02-06] MEDS: chlordiazePOXIDE HCL 25 MG CAPSULE PO SCH ×3 (06:25→21:34)
--- NOTE | 2019-02-06 07:26 | PN ---
Physical Exam: SUBJECTIVE: Patient seen and examined OBJECTIVE: Vital Signs Period Temp Pulse Resp BP Sys/Quispe Pulse Ox Last 24 Hr 98.1 F-99.2 F 71-96 16-20 126-164/75-95 99-100 GENERAL: The patient is awake, alert, and fully oriented, in no acute distress. HEAD: Normal with no signs of trauma. EYES: PERRL, extraocular movements intact, sclera anicteric, conjunctiva clear. No ptosis. NECK: Trachea midline, full range of motion, supple. LUNGS: Decreased breath sounds B/L HEART: Regular rate and rhythm, S1, S2 without murmur, rub or gallop. ABDOMEN: Soft, mild tenderness in suprapubic region, distended EXTREMITIES: 2+ pulses, warm, well-perfused, no edema. NEUROLOGICAL: Cranial nerves II through XII grossly intact. Normal speech, gait not observed, 5/5 motor strength B/L PSYCH: Normal mood, normal affect. Laboratory Results - last 24 hr 02/05/19 02/05/19 02/05/19 07:46 07:46 11:50 WBC 7.4 RBC 3.47 L Hgb 11.0 Hct 32.1 L MCV 92.5 MCH 31.8 MCHC 34.3 RDW 14.7 Plt Count 217 MPV 7.4 L Absolute Neuts (auto) 5.5 Neutrophils % 73.7 Lymphocytes % 16.5 Monocytes % 9.1 Eosinophils % 0.1 Basophils % 0.6 Nucleated RBC % 0 Sodium 138 Potassium 3.3 L Chloride 99 Carbon Dioxide 30 Anion Gap 9 BUN 14.8 Creatinine 0.7 Est GFR (CKD-EPI)AfAm 101.03 Est GFR (CKD-EPI)NonAf 87.17 Random Glucose 87 Calcium 9.1 Magnesium 2.0 Total Bilirubin 0.9 AST 33 ALT 34 Alkaline Phosphatase 97 Creatine Kinase 666 H Creatine Kinase Index 1.2 CK-MB (CK-2) 8.1 H Total Protein 6.8 Albumin 3.9 TSH 0.38 02/05/19 11:50 WBC RBC Hgb Hct MCV MCH MCHC RDW Plt Count MPV Absolute Neuts (auto) Neutrophils % Lymphocytes % Monocytes % Eosinophils % Basophils % Nucleated RBC % Sodium Potassium Chloride Carbon Dioxide Anion Gap BUN Creatinine Est GFR (CKD-EPI)AfAm Est GFR (CKD-EPI)NonAf Random Glucose Calcium Magnesium Total Bilirubin AST ALT Alkaline Phosphatase Creatine Kinase Creatine Kinase Index CK-MB (CK-2) Cancelled Total Protein Albumin TSH Active Medications Generic Name Dose Route Start Last Admin Trade Name Duarteq PRN Reason Stop Dose Admin Chlordiazepoxide HCl 10 mg 02/08/19 00:00 Librium - PO 02/08/19 23:59 Q12H PRN Signs/symptoms of Withdrawal Chlordiazepoxide HCl 10 mg 02/05/19 10:02 Librium - PO 02/07/19 23:59 Q8H PRN Signs/symptoms of Withdrawal Chlordiazepoxide HCl 25 mg 02/05/19 13:00 02/06/19 06:25 Librium - PO 02/06/19 21:01 25 mg Q8H [facility] Administration Chlordiazepoxide HCl 15 mg 02/07/19 05:00 Librium - PO 02/07/19 21:01 Q8H [facility] Chlordiazepoxide HCl 10 mg 02/08/19 05:00 Librium - PO 02/08/19 21:01 Q8H [facility] Chlordiazepoxide HCl 10 mg 02/09/19 05:00 Librium - PO 02/09/19 05:01 ONCE ONE Enoxaparin Sodium 40 mg 02/05/19 10:00 02/05/19 09:38 Lovenox - SQ 40 mg DAILY [facility] Administration Sodium Chloride 1,000 mls @ 60 mls/hr 02/05/19 02:04 02/06/19 01:00 Normal Saline - IV 60 mls/hr ASDIR [facility] Administration Polyethylene Glycol 17 gm 02/06/19 10:00 Miralax (For Daily Use) - PO DAILY [facility] Senna/Docusate Sodium 2 tablet 02/05/19 19:00 Pericolace - PO HS PRN CONSTIPATION Med Hx: 30 Ambien 10mg 5-6 pills a night for the past few weeks 90 .5mg xanax refills in last month(claims she hasn't used any in 4 years) 60 tramadol few per week for generalized pain, 4-5 years Current Medications Amlodipine Besylate (Norvasc -) 10 mg PO DAILY [facility] Last Admin: 02/07/19 10:27 Dose: 10 mg Chlordiazepoxide HCl (Librium -) 10 mg PO Q12H PRN PRN Reason: Signs/symptoms of Withdrawal Stop: 02/08/19 23:59 Chlordiazepoxide HCl (Librium -) 10 mg PO Q8H PRN PRN Reason: Signs/symptoms of Withdrawal Stop: 02/07/19 23:59 Chlordiazepoxide HCl (Librium -) 15 mg PO Q8H [facility] Stop: 02/07/19 21:01 Last Admin: 02/07/19 13:04 Dose: 15 mg Chlordiazepoxide HCl (Librium -) 10 mg PO Q8H [facility] Stop: 02/08/19 21:01 Chlordiazepoxide HCl (Librium -) 10 mg PO ONCE ONE Stop: 02/09/19 05:01 Enalapril Maleate (Vasotec -) 20 mg PO DAILY [facility] Last Admin: 02/07/19 10:27 Dose: 20 mg Enoxaparin Sodium (Lovenox -) 40 mg SQ DAILY [facility] Last Admin: 02/07/19 10:27 Dose: 40 mg Sodium Chloride (Normal Saline -) 1,000 mls @ 60 mls/hr IV ASDIR [facility] Last Admin: 02/07/19 01:50 Dose: 60 mls/hr Metoprolol Succinate (Toprol Xl -) 50 mg PO DAILY [facility] Last Admin: 02/07/19 10:27 Dose: 50 mg Non-Formulary Medication (Lansoprazole [Prevacid]) 30 mg PO DAILY [facility] Polyethylene Glycol (Miralax (For Daily Use) -) 17 gm PO DAILY [facility] Last Admin: 02/07/19 10:28 Dose: 17 gm Senna/Docusate Sodium (Pericolace -) 2 tablet PO HS PRN PRN Reason: CONSTIPATION ASSESSMENT/PLAN: 73F with PMH of gastritis, GERD, HTN, osteoporosis, insomnia who presented to the hospital after a witnessed seizure at [facility], sbdominal pain, and dysuria. Lasted 1 minute, was witnessed, Admitted to [facility] on 02/03 for ambien abuse, takes 6-10 10 mg pills a day. Last benzo was 0.5 mg ativan 02/03 Of note while at [facility] the night of 02/03 she was noted to be pacing the room and complaining of muscle pains, shakes, chills, and the bright lights disturbing her. Abdominal pain is in the suprapubic region, started 5 days ago, intensity is 7/ 10, pain is described as 'pushing', is constant in nature, and radiates to the back back. Dysuria is noted at the end of her stream, and there is no associated hematuria or pyuria. ER events: (1)EKG (2)CXR CT chest were normal CT Abdomen and Pelvis showed B/L caliectasis in kidneys likely secondary to dilated urinary bladder. (3)Was given 1mg Klonopin # Seizure, initial episode -Neuro consult: no need for AED; MRI done today, EEG outpatient -Will send to [facility] when bed becomes available -Mg, TSH pending -seizure precautions # Abuse/withdrawal -Librium protocol day 3 -Urine tox Benzo + # Urinary retention -Post void bladder scan (02/06) showed retention of 47 -UA: Protein 2+, blood 2+ # Met Alkalosis -ABG: pH H 7.51, HCO3 H 30.7, CO2 n 38.6 # Suspected Rhabdomyelosis -CK 554, 754, 666 -CKMB 11, 12.3, 8.1 -Urine blood 2+ -Follow CK, CKMB # Constipation -Enema ordered -Miralax, Senna # FEN -N/S # DVT Prop -Lovenox 40mg -Early ambulation Visit type - Emergency Visit Emergency Visit: Yes ED Registration Date: 02/05/19 Care time: The patient presented to the Emergency Department on the above date and was hospitalized for further evaluation of their emergent condition. - New Patient This patient is new to me today: No - Critical Care Critical Care patient: No - Discharge Referral Referred to [facility] Med P.C.: No ATTENDING PHYSICIAN STATEMENT I saw and evaluated the patient. I reviewed the resident's note and discussed the case with the resident. I agree with the resident's findings and plan as documented. SUBJECTIVE: OBJECTIVE: ASSESSMENT AND PLAN:
--- NOTE | 2019-02-06 09:12 | PN ---
Teaching Attending Note Name of Resident: Shay Kerr ATTENDING PHYSICIAN STATEMENT I saw and evaluated the patient. I reviewed the resident's note and discussed the case with the resident. I agree with the resident's findings and plan as documented. SUBJECTIVE: Patient is comfortable with no acute distress, no nausea or vomiting. OBJECTIVE: Vital Signs Temperature 98.2 F 02/06/19 06:00 Pulse Rate 71 02/06/19 06:00 Respiratory Rate 18 02/06/19 06:00 Blood Pressure 149/90 02/06/19 06:00 O2 Sat by Pulse Oximetry (%) 100 02/05/19 23:20 GENERAL: The patient is awake, alert, and fully oriented, in no acute distress. HEAD: Normal with no signs of trauma. EYES: PERRL, extraocular movements intact, sclera anicteric, conjunctiva clear. ENT: Ears normal, oropharynx clear without exudates, moist mucous membranes. NECK: Trachea midline, full range of motion, supple. LUNGS: Breath sounds equal, clear to auscultation bilaterally, no wheezes, no crackles, no accessory muscle use. HEART: Regular rate and rhythm, S1, S2 without murmur, rub or gallop. ABDOMEN: Soft, nontender, nondistended, normoactive bowel sounds, no guarding, no rebound, no hepatosplenomegaly, no masses. EXTREMITIES: 2+ pulses, warm, well-perfused, no edema. NEUROLOGICAL: Cranial nerves II through XII grossly intact. Normal speech, gait not observed. PSYCH: Normal mood, normal affect. SKIN: Warm, dry, normal turgor, no rashes or lesions noted CBCD WBC 7.4 K/mm3 (4.0-10.0) 02/05/19 07:46 RBC 3.47 M/mm3 (3.60-5.2) L 02/05/19 07:46 Hgb 11.0 GM/dL (10.7-15.3) 02/05/19 07:46 Hct 32.1 % (32.4-45.2) L 02/05/19 07:46 MCV 92.5 fl (80-96) 02/05/19 07:46 MCHC 34.3 g/dl (32.0-36.0) 02/05/19 07:46 RDW 14.7 % (11.6-15.6) 02/05/19 07:46 Plt Count 217 K/MM3 (134-434) 02/05/19 07:46 MPV 7.4 fl (7.5-11.1) L 02/05/19 07:46 CMP Sodium 138 mmol/L (136-145) 02/05/19 07:46 Potassium 3.3 mmol/L (3.5-5.1) L 02/05/19 07:46 Chloride 99 mmol/L (98-107) 02/05/19 07:46 Carbon Dioxide 30 mmol/L (21-32) 02/05/19 07:46 Anion Gap 9 MMOL/L (8-16) 02/05/19 07:46 BUN 14.8 mg/dL (7-18) 02/05/19 07:46 Creatinine 0.7 mg/dL (0.55-1.3) 02/05/19 07:46 Random Glucose 87 mg/dL (74-106) 02/05/19 07:46 Calcium 9.1 mg/dL (8.5-10.1) 02/05/19 07:46 Total Bilirubin 0.9 mg/dL (0.2-1) 02/05/19 07:46 AST 33 U/L (15-37) 02/05/19 07:46 ALT 34 U/L (13-61) 02/05/19 07:46 Alkaline Phosphatase 97 U/L (45-117) 02/05/19 07:46 Total Protein 6.8 g/dl (6.4-8.2) 02/05/19 07:46 Albumin 3.9 g/dl (3.4-5.0) 02/05/19 07:46 CARDIAC ENZYMES Creatine Kinase 666 U/L (26-192) H 02/05/19 11:50 Troponin I < 0.02 ng/ml (0.00-0.05) 02/04/19 17:42 Current Medications Generic Name Dose Route Start Last Admin Trade Name Freq PRN Reason Stop Dose Admin Amlodipine Besylate 10 mg 02/06/19 10:00 Norvasc - PO DAILY [facility] Chlordiazepoxide HCl 10 mg 02/08/19 00:00 Librium - PO 02/08/19 23:59 Q12H PRN Signs/symptoms of Withdrawal Chlordiazepoxide HCl 10 mg 02/05/19 10:02 Librium - PO 02/07/19 23:59 Q8H PRN Signs/symptoms of Withdrawal Chlordiazepoxide HCl 25 mg 02/05/19 13:00 02/06/19 06:25 Librium - PO 02/06/19 21:01 25 mg Q8H [facility] Administration Chlordiazepoxide HCl 15 mg 02/07/19 05:00 Librium - PO 02/07/19 21:01 Q8H [facility] Chlordiazepoxide HCl 10 mg 02/08/19 05:00 Librium - PO 02/08/19 21:01 Q8H [facility] Chlordiazepoxide HCl 10 mg 02/09/19 05:00 Librium - PO 02/09/19 05:01 ONCE ONE Enalapril Maleate 20 mg 02/06/19 10:00 Vasotec - PO DAILY [facility] Enoxaparin Sodium 40 mg 02/05/19 10:00 02/05/19 09:38 Lovenox - SQ 40 mg DAILY [facility] Administration Sodium Chloride 1,000 mls @ 60 mls/hr 02/05/19 02:04 02/06/19 01:00 Normal Saline - IV 60 mls/hr ASDIR [facility] Administration Metoprolol Succinate 50 mg 02/06/19 10:00 Toprol Xl - PO DAILY [facility] Non-Formulary Medication 30 mg 02/06/19 10:00 Lansoprazole [Prevacid] PO DAILY [facility] Polyethylene Glycol 17 gm 02/06/19 10:00 Miralax (For Daily Use) - PO DAILY [facility] Senna/Docusate Sodium 2 tablet 02/05/19 19:00 Pericolace - PO HS PRN CONSTIPATION Home Medications Medication Instructions Recorded Amlodipine Besylate 10 mg PO DAILY 02/03/19 Enalapril Maleate [Vasotec] 20 mg PO DAILY 02/03/19 Lansoprazole [Prevacid] 30 mg PO DAILY 02/03/19 Metoprolol Succinate [Toprol Xl -] 50 mg PO DAILY 02/03/19 Zolpidem Tartrate [Ambien] 10 mg PO DAILY 02/03/19 traMADol HCL [Ultram -] 50 mg PO BID 02/03/19 Alprazolam 0.5 mg PO TID 02/05/19 Amitriptyline HCl [Elavil -] 25 mg PO DAILY 02/05/19 Tizanidine HCl 2 mg PO BID 02/05/19 ASSESSMENT AND PLAN: Patient is a 73 y/o female with PMHx of HTN, GERD, gastritis, insomnia, she went to [facility] , and while planning to admit to rehab she had a witnessed seizure. # Acute withdrawel Seizure to benzo : Nl neuro exam now. awake. # Substance abuse: on Librium taper ; DO not give ambien # elevated CPK, mild rhabdo, due to seizure activity. IVF # H/o HTN: resume her home BP meds # Low BMI: malnourished DVT PX : Lovenox when ready, can return to [facility]
[2019-02-06] MEDS: POLYETHYLENE GLYCOL 3350 119 GM BTL PO SCH (09:29)
[2019-02-06] MEDS: ENOXAPARIN NA (PORCINE) 40 MG/0.4 ML DISP.SYRIN SQ SCH (09:30)
[2019-02-06] MEDS: ENALAPRIL MALEATE 10 MG TABLET (FP) PO SCH (09:30)
[2019-02-06] MEDS: amLODIPine BESYLATE 10 MG TABLET (FP) PO SCH (09:30)
[2019-02-06] MEDS ORDERED: PATIENT'S OWN MEDICATION (NON-FORMULARY) (Lansoprazole [Prevacid] 30 MG) PO SCH (10:00)
--- NOTE | 2019-02-06 10:20 | EKG ---
Test Reason : Blood Pressure : / mmHG Vent. Rate : 088 BPM Atrial Rate : 088 BPM P-R Int : 122 ms QRS Dur : 080 ms QT Int : 390 ms P-R-T Axes : 079 076 078 degrees QTc Int : 471 ms POOR DATA QUALITY, INTERPRETATION MAY BE ADVERSELY AFFECTED NORMAL SINUS RHYTHM NORMAL ECG WHEN COMPARED WITH ECG OF 04-FEB-2019 03:13, NO SIGNIFICANT CHANGE WAS FOUND Confirmed by OBIE MARINELLI, NADINE ([id number]) on 02/06/2019 10:20:27 AM Referred By: Confirmed By:NADINE RAGLAND MD
[2019-02-06 10:37] LABS: HEMATOCRIT 35.2 % (32.4-45.2); MCHC 34.1 g/dl (32.0-36.0); MEAN CELL VOLUME 93.9 fl (80-96); PLATELET COUNT 215 K/MM3 (134-434); RBC 3.75 M/mm3 (3.60-5.2); RDW 14.6 % (11.6-15.6); WHITE BLOOD COUNT 6.3 K/mm3 (4.0-10.0)
[2019-02-06 11:20] LABS: ALBUMIN 3.9 g/dl (3.4-5.0); BILIRUBIN,TOTAL 0.9 mg/dL (0.2-1); BLOOD UREA NITROGEN 12.5 mg/dL (7-18); CALCIUM 9.1 mg/dL (8.5-10.1); CREATININE 0.8 mg/dL (0.55-1.3); POTASSIUM 3.3 mmol/L (3.5-5.1); TOT PROT 6.7 g/dl (6.4-8.2)
[2019-02-07] MEDS: SODIUM CHLORIDE 1,000 ML IV SCH ×2 (01:50→18:41)
[2019-02-07] MEDS: chlordiazePOXIDE 5 MG CAPSULE PO SCH ×2 (05:35→13:04)
[2019-02-07 06:35] LABS: HEMATOCRIT 35.9 % (32.4-45.2); HEMOGLOBIN 12.1 GM/dL (10.7-15.3); MCH 31.8 pg (25.7-33.7); MCHC 33.7 g/dl (32.0-36.0); MEAN CELL VOLUME 94.4 fl (80-96); MEAN PLT VOLUME 7.4 fl (7.5-11.1); PLATELET COUNT 223 K/MM3 (134-434); RDW 14.6 % (11.6-15.6)
[2019-02-07 06:55] LABS: ALBUMIN 3.8 g/dl (3.4-5.0); BILIRUBIN,TOTAL 0.6 mg/dL (0.2-1); BLOOD UREA NITROGEN 16.1 mg/dL (7-18); CREATININE 0.8 mg/dL (0.55-1.3); POTASSIUM 3.5 mmol/L (3.5-5.1); TOT PROT 6.6 g/dl (6.4-8.2)
[2019-02-07] MEDS: amLODIPine BESYLATE 10 MG TABLET (FP) PO SCH (10:27)
[2019-02-07] MEDS: ENOXAPARIN NA (PORCINE) 40 MG/0.4 ML DISP.SYRIN SQ SCH (10:27)
[2019-02-07] MEDS: ENALAPRIL MALEATE 10 MG TABLET (FP) PO SCH (10:27)
[2019-02-07] MEDS: POLYETHYLENE GLYCOL 3350 119 GM BTL PO SCH (10:28)
[2019-02-07 12:10] VITALS: BMI 14.5
--- NOTE | 2019-02-07 15:45 | PN ---
Progress Note (short form) - Note Progress Note: 73 Year old female history of HTN, Gastritis, Osteoporosis, insomnia. Sridevi takes ambien everyday [facility] for ambien abuse. Paitent take 6-10 pills per day. Patient also uses tramadol. Patient has one episode of shaking , chills like feeling , and seizure lasted one minute. SH edid not have any tongue bite or incontinence. No account of post ictal confusion. Patient has ct head and it unremrakable. Patient never had any brain truma, encephalomalacia, no seizure or stroke in past. She has mri of brain and eeg done and she has no new symptoms Neurological examiantion Alert oriented x 3, neck is supple eomi, pupils reactive, no face asymmetry moving all ext sensation is normal ct head unremarkable Assessment/Plan 73 year old female history of substance abuse seizure secondary to Benzo Withdrawal Plan: no need for AED - will follow up on mri of brain and eeg Thanking you so much Vikash Latif MD
--- NOTE | 2019-02-07 15:47 | PN ---
Physical Exam: SUBJECTIVE: Patient seen and examined OBJECTIVE: Vital Signs Period Temp Pulse Resp BP Sys/Quispe Pulse Ox Last 24 Hr 97.8 F-98.7 F 71-84 20-20 122-145/74-90 98 GENERAL: The patient is awake, alert, and fully oriented, in no acute distress. HEAD: Normal with no signs of trauma. EYES: PERRL, extraocular movements intact, sclera anicteric, conjunctiva clear. No ptosis. NECK: Trachea midline, full range of motion, supple. LUNGS: Decreased breath sounds B/L HEART: Regular rate and rhythm, S1, S2 without murmur, rub or gallop. ABDOMEN: Soft, mild tenderness in suprapubic region, distended EXTREMITIES: 2+ pulses, warm, well-perfused, no edema. NEUROLOGICAL: Cranial nerves II through XII grossly intact. Normal speech, gait not observed, 5/5 motor strength B/L PSYCH: Normal mood, normal affect. Laboratory Results - last 24 hr 02/07/19 02/07/19 05:45 05:45 WBC 7.0 RBC 3.80 Hgb 12.1 Hct 35.9 MCV 94.4 MCH 31.8 MCHC 33.7 RDW 14.6 Plt Count 223 MPV 7.4 L Sodium 137 Potassium 3.5 Chloride 100 Carbon Dioxide 33 H Anion Gap 5 L BUN 16.1 Creatinine 0.8 Est GFR (CKD-EPI)AfAm 85.97 Est GFR (CKD-EPI)NonAf 74.17 Random Glucose 105 Calcium 9.0 Total Bilirubin 0.6 AST 34 ALT 34 Alkaline Phosphatase 87 Total Protein 6.6 Albumin 3.8 Active Medications Generic Name Dose Route Start Last Admin Trade Name Freq PRN Reason Stop Dose Admin Amlodipine Besylate 10 mg 02/06/19 10:00 02/07/19 10:27 Norvasc - PO 10 mg DAILY [facility] Administration Chlordiazepoxide HCl 10 mg 02/08/19 00:00 Librium - PO 02/08/19 23:59 Q12H PRN Signs/symptoms of Withdrawal Chlordiazepoxide HCl 10 mg 02/05/19 10:02 Librium - PO 02/07/19 23:59 Q8H PRN Signs/symptoms of Withdrawal Chlordiazepoxide HCl 15 mg 02/07/19 05:00 02/07/19 13:04 Librium - PO 02/07/19 21:01 15 mg Q8H [facility] Administration Chlordiazepoxide HCl 10 mg 02/08/19 05:00 Librium - PO 02/08/19 21:01 Q8H [facility] Chlordiazepoxide HCl 10 mg 02/09/19 05:00 Librium - PO 02/09/19 05:01 ONCE ONE Enalapril Maleate 20 mg 02/06/19 10:00 02/07/19 10:27 Vasotec - PO 20 mg DAILY [facility] Administration Enoxaparin Sodium 40 mg 02/05/19 10:00 02/07/19 10:27 Lovenox - SQ 40 mg DAILY [facility] Administration Sodium Chloride 1,000 mls @ 60 mls/hr 02/05/19 02:04 02/07/19 01:50 Normal Saline - IV 60 mls/hr ASDIR [facility] Administration Metoprolol Succinate 50 mg 02/06/19 10:00 02/07/19 10:27 Toprol Xl - PO 50 mg DAILY [facility] Administration Non-Formulary Medication 30 mg 02/06/19 10:00 Lansoprazole [Prevacid] PO DAILY [facility] Polyethylene Glycol 17 gm 02/06/19 10:00 02/07/19 10:28 Miralax (For Daily Use) - PO 17 gm DAILY [facility] Administration Senna/Docusate Sodium 2 tablet 02/05/19 19:00 Pericolace - PO HS PRN CONSTIPATION ASSESSMENT/PLAN: 73F with PMH of gastritis, GERD, HTN, osteoporosis, insomnia who presented to the hospital after a witnessed seizure at [facility], sbdominal pain, and dysuria. Lasted 1 minute, was witnessed, Admitted to [facility] on 02/03 for ambien abuse, takes 6-10 10 mg pills a day. Last benzo was 0.5 mg ativan 02/03 Of note while at [facility] the night of 02/03 she was noted to be pacing the room and complaining of muscle pains, shakes, chills, and the bright lights disturbing her. Abdominal pain is in the suprapubic region, started 5 days ago, intensity is 7/ 10, pain is described as 'pushing', is constant in nature, and radiates to the back back. Dysuria is noted at the end of her stream, and there is no associated hematuria or pyuria. ER events: (1)EKG (2)CXR CT chest were normal CT Abdomen and Pelvis showed B/L caliectasis in kidneys likely secondary to dilated urinary bladder. (3)Was given 1mg Klonopin # Seizure, initial episode -Neuro consult: MRI was not done yesterday, patient sent today -Will send to [facility] when bed becomes available -Mg 2.0 -TSH 0.38 -seizure precautions # Abuse/withdrawal -Librium protocol day 3 -Urine tox Benzo + # Urinary retention -Post void bladder scan (02/06) showed retention of 47 -UA: Protein 2+, blood 2+ # Met Alkalosis -ABG: pH H 7.51, HCO3 H 30.7, CO2 n 38.6 # Suspected Rhabdomyelosis -CK ordered, follow -CK 554, 754, 666 -CKMB 11, 12.3, 8.1 -Urine blood 2+ # Constipation -Enema ordered -Miralax, Senna # FEN -N/S # DVT Prop -Lovenox 40mg -Early ambulation Visit type - Emergency Visit Emergency Visit: Yes ED Registration Date: 02/05/19 Care time: The patient presented to the Emergency Department on the above date and was hospitalized for further evaluation of their emergent condition. - New Patient This patient is new to me today: No - Critical Care Critical Care patient: No - Discharge Referral Referred to [facility] No ATTENDING PHYSICIAN STATEMENT I saw and evaluated the patient. I reviewed the resident's note and discussed the case with the resident. I agree with the resident's findings and plan as documented. SUBJECTIVE: OBJECTIVE: ASSESSMENT AND PLAN:
[2019-02-07] MEDS ORDERED: SENNOSIDES/DOCUSATE COMBO (SENNA PLUS) TABLET (UD) PO PRN (16:54)
[2019-02-07] MEDS ORDERED: chlordiazePOXIDE HCL 10 MG CAPSULE PO PRN (16:54)
--- NOTE | 2019-02-07 18:32 | PN ---
Teaching Attending Note Name of Resident: Shay Kerr ATTENDING PHYSICIAN STATEMENT I saw and evaluated the patient. I reviewed the resident's note and discussed the case with the resident. I agree with the resident's findings and plan as documented. SUBJECTIVE: Comfortable with no acute distress. OBJECTIVE: Vital Signs Temperature 97.8 F 02/07/19 09:00 Pulse Rate 72 02/07/19 09:00 Respiratory Rate 20 02/07/19 09:00 Blood Pressure 134/84 02/07/19 09:00 O2 Sat by Pulse Oximetry (%) 100 02/07/19 09:00 GENERAL: The patient is awake, alert, and fully oriented, in no acute distress. HEAD: Normal with no signs of trauma. EYES: PERRL, extraocular movements intact, sclera anicteric, conjunctiva clear. ENT: Ears normal, oropharynx clear without exudates, moist mucous membranes. NECK: Trachea midline, full range of motion, supple. LUNGS: Breath sounds equal, clear to auscultation bilaterally, no wheezes, no crackles, no accessory muscle use. HEART: Regular rate and rhythm, S1, S2 without murmur, rub or gallop. ABDOMEN: Soft, nontender, nondistended, normoactive bowel sounds, no guarding, no rebound, no hepatosplenomegaly, no masses. EXTREMITIES: 2+ pulses, warm, well-perfused, no edema. NEUROLOGICAL: Cranial nerves II through XII grossly intact. Normal speech, gait not observed. PSYCH: Normal mood, normal affect. SKIN: Warm, dry, normal turgor, no rashes or lesions noted CBCD WBC 7.0 K/mm3 (4.0-10.0) 02/07/19 05:45 RBC 3.80 M/mm3 (3.60-5.2) 02/07/19 05:45 Hgb 12.1 GM/dL (10.7-15.3) 02/07/19 05:45 Hct 35.9 % (32.4-45.2) 02/07/19 05:45 MCV 94.4 fl (80-96) 02/07/19 05:45 MCHC 33.7 g/dl (32.0-36.0) 02/07/19 05:45 RDW 14.6 % (11.6-15.6) 02/07/19 05:45 Plt Count 223 K/MM3 (134-434) 02/07/19 05:45 MPV 7.4 fl (7.5-11.1) L 02/07/19 05:45 CMP Sodium 137 mmol/L (136-145) 02/07/19 05:45 Potassium 3.5 mmol/L (3.5-5.1) 02/07/19 05:45 Chloride 100 mmol/L (98-107) 02/07/19 05:45 Carbon Dioxide 33 mmol/L (21-32) H 02/07/19 05:45 Anion Gap 5 MMOL/L (8-16) L 02/07/19 05:45 BUN 16.1 mg/dL (7-18) 02/07/19 05:45 Creatinine 0.8 mg/dL (0.55-1.3) 02/07/19 05:45 Random Glucose 105 mg/dL (74-106) 02/07/19 05:45 Calcium 9.0 mg/dL (8.5-10.1) 02/07/19 05:45 Total Bilirubin 0.6 mg/dL (0.2-1) 02/07/19 05:45 AST 34 U/L (15-37) 02/07/19 05:45 ALT 34 U/L (13-61) 02/07/19 05:45 Alkaline Phosphatase 87 U/L (45-117) 02/07/19 05:45 Total Protein 6.6 g/dl (6.4-8.2) 02/07/19 05:45 Albumin 3.8 g/dl (3.4-5.0) 02/07/19 05:45 CARDIAC ENZYMES Creatine Kinase 666 U/L (26-192) H 02/05/19 11:50 Troponin I < 0.02 ng/ml (0.00-0.05) 02/04/19 17:42 Current Medications Generic Name Dose Route Start Last Admin Trade Name Duarteq PRN Reason Stop Dose Admin Amlodipine Besylate 10 mg 02/06/19 10:00 02/07/19 10:27 Norvasc - PO 10 mg DAILY [facility] Administration Chlordiazepoxide HCl 10 mg 02/09/19 05:00 Librium - PO 02/09/19 05:01 ONCE ONE Chlordiazepoxide HCl 10 mg 02/08/19 00:00 Librium - PO 02/08/19 23:59 Q12H PRN Signs/symptoms of Withdrawal Chlordiazepoxide HCl 10 mg 02/07/19 16:54 Librium - PO 02/07/19 23:59 Q8H PRN Signs/symptoms of Withdrawal Chlordiazepoxide HCl 15 mg 02/07/19 21:00 Librium - PO 02/07/19 21:01 Q8H [facility] Chlordiazepoxide HCl 10 mg 02/08/19 05:00 Librium - PO 02/08/19 21:01 Q8H [facility] Enalapril Maleate 20 mg 02/06/19 10:00 02/07/19 10:27 Vasotec - PO 20 mg DAILY [facility] Administration Enoxaparin Sodium 40 mg 02/08/19 10:00 Lovenox - SQ DAILY [facility] Sodium Chloride 1,000 mls @ 60 mls/hr 02/07/19 16:54 Normal Saline - IV ASDIR [facility] Metoprolol Succinate 50 mg 02/06/19 10:00 02/07/19 10:27 Toprol Xl - PO 50 mg DAILY [facility] Administration Non-Formulary Medication 30 mg 02/06/19 10:00 Lansoprazole [Prevacid] PO DAILY [facility] Polyethylene Glycol 17 gm 02/08/19 10:00 Miralax (For Daily Use) - PO DAILY [facility] Senna/Docusate Sodium 2 tablet 02/07/19 16:54 Pericolace - PO HS PRN CONSTIPATION Home Medications Medication Instructions Recorded Amlodipine Besylate 10 mg PO DAILY 02/03/19 Enalapril Maleate [Vasotec] 20 mg PO DAILY 02/03/19 Lansoprazole [Prevacid] 30 mg PO DAILY 02/03/19 Metoprolol Succinate [Toprol Xl -] 50 mg PO DAILY 02/03/19 Zolpidem Tartrate [Ambien] 10 mg PO DAILY 02/03/19 traMADol HCL [Ultram -] 50 mg PO BID 02/03/19 Alprazolam 0.5 mg PO TID 02/05/19 Amitriptyline HCl [Elavil -] 25 mg PO DAILY 02/05/19 Tizanidine HCl 2 mg PO BID 02/05/19 ASSESSMENT AND PLAN: Patient is a 73 y/o female with PMHx of HTN, GERD, gastritis, insomnia, she [facility] , and while planning to admit to rehab she had a witnessed seizure. # Acute withdrawel Seizure to benzo : no further seizure, MRI s negative . # Substance abuse: on Librium taper ; DO not give ambien #s/p elevated CPK, mild rhabdo, due to seizure activity. IVF # H/o HTN: resume her home BP meds # Low BMI: malnourished DVT PX : Lovenox when ready, can be discharged in am to [facility] sn[facility] detox
[2019-02-07] MEDS ORDERED: chlordiazePOXIDE 5 MG CAPSULE PO SCH (21:00)
[2019-02-08] MEDS ORDERED: chlordiazePOXIDE HCL 10 MG CAPSULE PO PRN ×2
[2019-02-08] MEDS ORDERED: chlordiazePOXIDE HCL 10 MG CAPSULE PO SCH (05:00)
[2019-02-08] MEDS ORDERED: chlordiazePOXIDE 5 MG CAPSULE ONE ×3 (05:11→22:32)
[2019-02-08] MEDS: chlordiazePOXIDE HCL 10 MG CAPSULE PO SCH ×3 (05:52→22:45)
--- NOTE | 2019-02-08 07:34 | PN ---
Physical Exam: SUBJECTIVE: Patient seen and examined OBJECTIVE: Vital Signs Period Temp Pulse Resp BP Sys/Quispe Pulse Ox Last 24 Hr 97.4 F-98.1 F 67-77 20-20 134-155/83-97 98-100 Laboratory Results - last 24 hr 02/07/19 15:30 Urine Osmolality 559 Ur Random Sodium 63 Active Medications Generic Name Dose Route Start Last Admin Trade Name Freq PRN Reason Stop Dose Admin Amlodipine Besylate 10 mg 02/06/19 10:00 02/07/19 10:27 Norvasc - PO 10 mg DAILY [facility] Administration Chlordiazepoxide HCl 10 mg 02/09/19 05:00 Librium - PO 02/09/19 05:01 ONCE ONE Chlordiazepoxide HCl 10 mg 02/08/19 00:00 Librium - PO 02/08/19 23:59 Q12H PRN Signs/symptoms of Withdrawal Chlordiazepoxide HCl 10 mg 02/08/19 05:00 02/08/19 05:52 Librium - PO 02/08/19 21:01 10 mg Q8H [facility] Administration Enalapril Maleate 20 mg 02/06/19 10:00 02/07/19 10:27 Vasotec - PO 20 mg DAILY [facility] Administration Enoxaparin Sodium 40 mg 02/08/19 10:00 Lovenox - SQ DAILY [facility] Sodium Chloride 1,000 mls @ 60 mls/hr 02/07/19 16:54 02/07/19 18:41 Normal Saline - IV 60 mls/hr ASDIR [facility] Administration Metoprolol Succinate 50 mg 02/06/19 10:00 02/07/19 10:27 Toprol Xl - PO 50 mg DAILY [facility] Administration Non-Formulary Medication 30 mg 02/06/19 10:00 Lansoprazole [Prevacid] PO DAILY [facility] Polyethylene Glycol 17 gm 02/08/19 10:00 Miralax (For Daily Use) - PO DAILY [facility] Senna/Docusate Sodium 2 tablet 02/07/19 16:54 Pericolace - PO HS PRN CONSTIPATION Current Medications Amlodipine Besylate (Norvasc -) 10 mg PO DAILY [facility] Last Admin: 02/07/19 10:27 Dose: 10 mg Chlordiazepoxide HCl (Librium -) 10 mg PO ONCE ONE Stop: 02/09/19 05:01 Chlordiazepoxide HCl (Librium -) 10 mg PO Q12H PRN PRN Reason: Signs/symptoms of Withdrawal Stop: 02/08/19 23:59 Chlordiazepoxide HCl (Librium -) 10 mg PO Q8H [facility] Stop: 02/08/19 21:01 Last Admin: 02/08/19 05:52 Dose: 10 mg Enalapril Maleate (Vasotec -) 20 mg PO DAILY [facility] Last Admin: 02/07/19 10:27 Dose: 20 mg Enoxaparin Sodium (Lovenox -) 40 mg SQ DAILY [facility] Sodium Chloride (Normal Saline -) 1,000 mls @ 60 mls/hr IV ASDIR [facility] Last Admin: 02/07/19 18:41 Dose: 60 mls/hr Metoprolol Succinate (Toprol Xl -) 50 mg PO DAILY [facility] Last Admin: 02/07/19 10:27 Dose: 50 mg Non-Formulary Medication (Lansoprazole [Prevacid]) 30 mg PO DAILY [facility] Polyethylene Glycol (Miralax (For Daily Use) -) 17 gm PO DAILY [facility] Senna/Docusate Sodium (Pericolace -) 2 tablet PO HS PRN PRN Reason: CONSTIPATION ASSESSMENT/PLAN: 73F with PMH of gastritis, GERD, HTN, osteoporosis, insomnia who presented to the hospital after a witnessed seizure at [facility], sbdominal pain, and dysuria. Lasted 1 minute, was witnessed, Admitted to [facility] on 02/03 for ambien abuse, takes 6-10 10 mg pills a day. Last benzo was 0.5 mg ativan 02/03 # Seizure, initial episode -Neuro consult: MRI shows evidence of chronic ischemic changes, no acute hemorrhage/infarction -Mg 2.0, TSH 0.38 -seizure precautions # Abuse/withdrawal - Librium protocol day 4 - Will send to [facility] when bed becomes available - Urine tox Benzo + - given 1mg Klonopin in ER # Urinary retention -CT Abdomen and Pelvis showed B/L caliectasis in kidneys likely secondary to dilated urinary bladder -Post void bladder scan (02/06) showed retention of 47 -UA: Protein 2+, blood 2+ # Met Alkalosis -ABG: pH H 7.51, HCO3 H 30.7, CO2 n 38.6 # Suspected Rhabdomyelosis -CK ordered, follow -CK 554, 754, 666 -CKMB 11, 12.3, 8.1 -Urine blood 2+ -Hydrate N/S # Constipation -Enema ordered -Miralax, Senna # FEN -N/S # DVT Prop -Lovenox 40mg -Early ambulation ATTENDING PHYSICIAN STATEMENT I saw and evaluated the patient. I reviewed the resident's note and discussed the case with the resident. I agree with the resident's findings and plan as documented. SUBJECTIVE: OBJECTIVE: ASSESSMENT AND PLAN:
[2019-02-08 08:47] LABS: HEMATOCRIT 32.9 % (32.4-45.2); HEMOGLOBIN 11.3 GM/dL (10.7-15.3); MCH 32.1 pg (25.7-33.7); MCHC 34.3 g/dl (32.0-36.0); MEAN CELL VOLUME 93.7 fl (80-96); MEAN PLT VOLUME 7.4 fl (7.5-11.1); RDW 14.6 % (11.6-15.6); WHITE BLOOD COUNT 5.2 K/mm3 (4.0-10.0)
[2019-02-08 09:07] LABS: PLATELET COUNT 207 K/MM3 (134-434)
[2019-02-08 09:26] LABS: ALBUMIN 3.5 g/dl (3.4-5.0); BILIRUBIN,TOTAL 0.4 mg/dL (0.2-1); BLOOD UREA NITROGEN 13.1 mg/dL (7-18); CALCIUM 8.8 mg/dL (8.5-10.1); CREATININE 0.8 mg/dL (0.55-1.3); POTASSIUM 3.6 mmol/L (3.5-5.1); TOT PROT 6.1 g/dl (6.4-8.2)
--- NOTE | 2019-02-08 10:41 | PN ---
Teaching Attending Note Name of Resident: Shay Kerr ATTENDING PHYSICIAN STATEMENT I saw and evaluated the patient. I reviewed the resident's note and discussed the case with the resident. I agree with the resident's findings and plan as documented. SUBJECTIVE: Patient is comfortable with no acute distress, no nausea or vomiting. OBJECTIVE: Vital Signs Temperature 98.1 F 02/08/19 08:50 Pulse Rate 73 02/08/19 08:50 Respiratory Rate 17 02/08/19 08:50 Blood Pressure 140/90 02/08/19 08:50 O2 Sat by Pulse Oximetry (%) 98 02/07/19 21:00 GENERAL: The patient is awake, alert, and fully oriented, in no acute distress. HEAD: Normal with no signs of trauma. EYES: PERRL, extraocular movements intact, sclera anicteric, conjunctiva clear. ENT: Ears normal, oropharynx clear without exudates, moist mucous membranes. NECK: Trachea midline, full range of motion, supple. LUNGS: Breath sounds equal, clear to auscultation bilaterally, no wheezes, no crackles, no accessory muscle use. HEART: Regular rate and rhythm, S1, S2 without murmur, rub or gallop. ABDOMEN: Soft, nontender, nondistended, normoactive bowel sounds, no guarding, no rebound, no hepatosplenomegaly, no masses. EXTREMITIES: 2+ pulses, warm, well-perfused, no edema. NEUROLOGICAL: Cranial nerves II through XII grossly intact. Normal speech, gait not observed. PSYCH: Normal mood, normal affect. SKIN: Warm, dry, normal turgor, no rashes or lesions notedCBCD WBC 5.2 K/mm3 (4.0-10.0) 02/08/19 08:10 RBC 3.50 M/mm3 (3.60-5.2) L 02/08/19 08:10 Hgb 11.3 GM/dL (10.7-15.3) 02/08/19 08:10 Hct 32.9 % (32.4-45.2) 02/08/19 08:10 MCV 93.7 fl (80-96) 02/08/19 08:10 MCHC 34.3 g/dl (32.0-36.0) 02/08/19 08:10 RDW 14.6 % (11.6-15.6) 02/08/19 08:10 Plt Count 207 K/MM3 (134-434) 02/08/19 08:10 MPV 7.4 fl (7.5-11.1) L 02/08/19 08:10 CMP Sodium 139 mmol/L (136-145) 02/08/19 08:10 Potassium 3.6 mmol/L (3.5-5.1) 02/08/19 08:10 Chloride 101 mmol/L (98-107) 02/08/19 08:10 Carbon Dioxide 34 mmol/L (21-32) H 02/08/19 08:10 Anion Gap 4 MMOL/L (8-16) L 02/08/19 08:10 BUN 13.1 mg/dL (7-18) 02/08/19 08:10 Creatinine 0.8 mg/dL (0.55-1.3) 02/08/19 08:10 Random Glucose 92 mg/dL (74-106) 02/08/19 08:10 Calcium 8.8 mg/dL (8.5-10.1) 02/08/19 08:10 Total Bilirubin 0.4 mg/dL (0.2-1) 02/08/19 08:10 AST 25 U/L (15-37) 02/08/19 08:10 ALT 33 U/L (13-61) 02/08/19 08:10 Alkaline Phosphatase 76 U/L (45-117) 02/08/19 08:10 Total Protein 6.1 g/dl (6.4-8.2) L 02/08/19 08:10 Albumin 3.5 g/dl (3.4-5.0) 02/08/19 08:10 CARDIAC ENZYMES Creatine Kinase 220 U/L (26-192) H 02/08/19 08:10 Troponin I < 0.02 ng/ml (0.00-0.05) 02/04/19 17:42 Current Medications Generic Name Dose Route Start Last Admin Trade Name Freq PRN Reason Stop Dose Admin Amlodipine Besylate 10 mg 02/06/19 10:00 02/07/19 10:27 Norvasc - PO 10 mg DAILY [facility] Administration Chlordiazepoxide HCl 10 mg 02/09/19 05:00 Librium - PO 02/09/19 05:01 ONCE ONE Chlordiazepoxide HCl 10 mg 02/08/19 00:00 Librium - PO 02/08/19 23:59 Q12H PRN Signs/symptoms of Withdrawal Chlordiazepoxide HCl 10 mg 02/08/19 05:00 02/08/19 05:52 Librium - PO 02/08/19 21:01 10 mg Q8H [facility] Administration Enalapril Maleate 20 mg 02/06/19 10:00 02/07/19 10:27 Vasotec - PO 20 mg DAILY [facility] Administration Enoxaparin Sodium 40 mg 02/08/19 10:00 Lovenox - SQ DAILY [facility] Sodium Chloride 1,000 mls @ 60 mls/hr 02/07/19 16:54 02/07/19 18:41 Normal Saline - IV 60 mls/hr ASDIR [facility] Administration Metoprolol Succinate 50 mg 02/06/19 10:00 02/07/19 10:27 Toprol Xl - PO 50 mg DAILY [facility] Administration Non-Formulary Medication 30 mg 02/06/19 10:00 Lansoprazole [Prevacid] PO DAILY [facility] Polyethylene Glycol 17 gm 02/08/19 10:00 Miralax (For Daily Use) - PO DAILY [facility] Senna/Docusate Sodium 2 tablet 02/07/19 16:54 Pericolace - PO HS PRN CONSTIPATION Home Medications Medication Instructions Recorded Amlodipine Besylate 10 mg PO DAILY 02/03/19 Enalapril Maleate [Vasotec] 20 mg PO DAILY 02/03/19 Lansoprazole [Prevacid] 30 mg PO DAILY 02/03/19 Metoprolol Succinate [Toprol XL -] 50 mg PO DAILY 02/03/19 ASSESSMENT AND PLAN: Patient is a 73 y/o female with PMHx of HTN, GERD, gastritis, insomnia, she went to [facility] , and while planning to admit to rehab she had a witnessed seizure. # Acute withdrawel Seizure to benzo : no further seizure, no further withdrawel , MRI s negative . # Substance abuse: on Librium taper ; DO not give ambien #s/p elevated CPK, mild rhabdo, due to seizure activity. resolved # H/o HTN: continue home BP meds # Low BMI: malnourished DVT PX : Lovenox discharge patient to [facility] residential detox
[2019-02-08] MEDS: POLYETHYLENE GLYCOL 3350 119 GM BTL PO SCH (10:57)
[2019-02-08] MEDS: amLODIPine BESYLATE 10 MG TABLET (FP) PO SCH (10:57)
[2019-02-08] MEDS: ENALAPRIL MALEATE 10 MG TABLET (FP) PO SCH (10:58)
[2019-02-08] MEDS: ENOXAPARIN NA (PORCINE) 40 MG/0.4 ML DISP.SYRIN SQ SCH (11:01)
[2019-02-08] MEDS: SODIUM CHLORIDE 1,000 ML IV SCH ×2 (11:11→22:44)
--- NOTE | 2019-02-08 11:49 | DS ---
Physical Exam: SUBJECTIVE: Patient seen and examined OBJECTIVE: Vital Signs Period Temp Pulse Resp BP Sys/Quispe Pulse Ox Last 24 Hr 97.4 F-98.1 F 67-77 17-20 140-155/83-97 98-98 PHYSICAL EXAM GENERAL: The patient is awake, alert, and fully oriented, in no acute distress. HEAD: Normal with no signs of trauma. EYES: PERRL, extraocular movements intact, sclera anicteric, conjunctiva clear. No ptosis. NECK: Trachea midline, full range of motion, supple. LUNGS: Decreased breath sounds B/L HEART: Regular rate and rhythm, S1, S2 without murmur, rub or gallop. ABDOMEN: Soft, midline scar observed. No distension or tenderness. EXTREMITIES: 2+ pulses, warm, well-perfused, no edema. NEUROLOGICAL: Cranial nerves II through XII grossly intact. Normal speech, gait not observed, 5/5 motor strength B/L PSYCH: Normal mood, normal affect. LABS Laboratory Results - last 24 hr 02/07/19 02/08/19 02/08/19 15:30 08:10 08:10 WBC 5.2 RBC 3.50 L Hgb 11.3 Hct 32.9 MCV 93.7 MCH 32.1 MCHC 34.3 RDW 14.6 Plt Count 207 MPV 7.4 L Sodium 139 Potassium 3.6 Chloride 101 Carbon Dioxide 34 H Anion Gap 4 L BUN 13.1 Creatinine 0.8 Est GFR (CKD-EPI)AfAm 85.97 Est GFR (CKD-EPI)NonAf 74.17 Random Glucose 92 Calcium 8.8 Total Bilirubin 0.4 AST 25 ALT 33 Alkaline Phosphatase 76 Creatine Kinase 220 H Creatine Kinase Index 0.7 CK-MB (CK-2) 1.7 Total Protein 6.1 L Albumin 3.5 Urine Osmolality 559 Ur Random Sodium 63 HOSPITAL COURSE: Date of Admission:02/05/19 73F with PMH of gastritis, GERD, HTN, osteoporosis, insomnia who presented to the hospital after a witnessed seizure at [facility], abdominal pain, and dysuria. Lasted 1 minute, was witnessed, Admitted to [facility] on 02/03 for ambien abuse, takes 6-10 10 mg pills a day. Last benzo was 0.5 mg ativan 02/03 Date of Discharge: 02/08/19 Urine tox screen was positive for benzos, and she was given 1mg Klonopine in the ER.The patient was placed on Librium protocol and seizure precautions, given thiamine/folate. Mg TSH were normal. UA showed protein 2+ and blood 2+, elevated CK suggestive of rhabdomyelosis secondary to seizure activity. CK was downtrending after hydration with N/S CT Abdomen and Pelvis showed B/L caliectasis in kidneys likely secondary to dilated urinary bladder, and patient complained if bladder distension. Post void blader scan showed 47ml in bladder. Distension gradually improved. Patient also complained of constipation, was administered Miralax as well as senna without improvement, Was administered saline enema, resulted in relief of symptoms. MRI of the brain was done which showed evidence of chronic ischemic changes, but no acute hemorrhage/infarction, cleared by Neuro for D/C. Patient discharged to [facility] on 4th day of Librium protocol. Minutes to complete discharge: 20 Discharge Summary Reason For Visit: SEIZURE,CHEST PAIN Condition: Stable - Instructions Diet, Activity, Other Instructions: You were admitted to the hospital because you had a seizure. We believe your seizure was a result of withdrawal from drug use. While you were here, we gave you medicine to prevent further seizure. We also performed an (MRI) to make sure everything is normal. The scan did not show anything that would require emergency treatment. Please follow up with our Neurologist to make sure no further testing is required. DO NOT TAKE THESE MEDICATIONS: - Ambien - Tramadol - Alprazolam - Tizanidine Follow up: Please make the following appointments within one week: - With your PCP - With our Neurologist, Dr Latif Additional Information: Please return to the Emergency Department if you have any of the following: Nausea, vomiting, diarrhea, difficulty breathing, bleeding that will not stop, or persistent headache Referrals: Vikash Latif MD [Staff Physician] - Disposition: [facility]ILITY - Home Medications Comprehensive Discharge Medication List: Ambulatory Orders Amlodipine Besylate 10 mg PO DAILY 02/03/19 Enalapril Maleate [Vasotec] 20 mg PO DAILY 02/03/19 Lansoprazole [Prevacid] 30 mg PO DAILY 02/03/19 Metoprolol Succinate [Toprol XL -] 50 mg PO DAILY 02/03/19 This patient is new to me today: No Emergency Visit: Yes ED Registration Date: 02/05/19 Care time: The patient presented to the Emergency Department on the above date and was hospitalized for further evaluation of their emergent condition. Critical Care patient: No - Discharge Referral Referred to [facility] No ATTENDING PHYSICIAN STATEMENT I saw and evaluated the patient. I reviewed the resident's note and discussed the case with the resident. I agree with the resident's findings and plan as documented. SUBJECTIVE: OBJECTIVE: ASSESSMENT AND PLAN:
[2019-02-09] MEDS: SODIUM CHLORIDE 1,000 ML IV SCH (04:02)
[2019-02-09] MEDS ORDERED: chlordiazePOXIDE HCL 10 MG CAPSULE PO ONE ×2 (05:00)
[2019-02-09] MEDS ORDERED: chlordiazePOXIDE 5 MG CAPSULE ONE (06:08)
[2019-02-09] MEDS: POLYETHYLENE GLYCOL 3350 119 GM BTL PO SCH (10:51)
[2019-02-09] MEDS: ENOXAPARIN NA (PORCINE) 40 MG/0.4 ML DISP.SYRIN SQ SCH (10:51)
[2019-02-09] MEDS: amLODIPine BESYLATE 10 MG TABLET (FP) PO SCH (10:51)
[2019-02-09] MEDS: ENALAPRIL MALEATE 10 MG TABLET (FP) PO SCH (10:52)
[2019-02-09 18:32] VITALS: BP 127/79; PULSE 87; TEMP 99.2
== END 2019-02-09 19:31 | DRG 917 ==
LOC: JER 16:02 → JERBED 02-05 00:51 → J4W 02-05 23:29 → J5S 02-07 16:21
PROVIDERS: ADMIT Internal Medicine; ATTEND Internal Medicine
PROC: HZ2ZZZZ Detoxification Services for Substance Abuse Treatment (ICD-10-PCS; principal; 2019-02-04)
DX: T42.4X1A Poisoning by benzodiazepines, accidental (unintentional), initial encounter (principal); E43 Unspecified severe protein-calorie malnutrition; G93.40 Encephalopathy, unspecified; E87.3 Alkalosis; M62.82 Rhabdomyolysis; R64 Cachexia; Z68.1 Body mass index [BMI] 19.9 or less, adult; E87.1 Hypo-osmolality and hyponatremia; E46 Unspecified protein-calorie malnutrition; T42.6X1A Poisoning by other antiepileptic and sedative-hypnotic drugs, accidental (unintentional), initial encounter; F51.04 Psychophysiologic insomnia; F11.10 Opioid abuse, uncomplicated; R56.9 Unspecified convulsions; R62.7 Adult failure to thrive; N28.89 Other specified disorders of kidney and ureter; M81.0 Age-related osteoporosis without current pathological fracture; K59.00 Constipation, unspecified; K21.9 Gastro-esophageal reflux disease without esophagitis; G47.00 Insomnia, unspecified; K29.70 Gastritis, unspecified, without bleeding; F13.10 Sedative, hypnotic or anxiolytic abuse, uncomplicated; K64.8 Other hemorrhoids; Z88.0 Allergy status to penicillin
CPT/HCPCS: 36415; 36600; 70450-TC; 70553-TC; 71045-TC-FY; 74177-TC; 80053; 80307; 81003; 82175; 82300; 82550; 82553; 82803; 83605; 83655; 83735; 83825; 83930; 83935; 84300; 84443; 84484; 85025; 85027; 93005; 93010; 95816; 99285-25; A9579; J7030

== ENCOUNTER 2019-02-09 20:49 | Emergency (ER) | payer OTHER | END 2019-02-09 21:56 | disposition short-term general hospital (02) | LOC: JER 20:49 ==

== ENCOUNTER 2019-02-09 22:23 | Inpatient (IN) | payer OTHER ==
[2019-02-09 23:11] VITALS: BMI 15.0
--- NOTE | 2019-02-09 23:33 | HP ---
CIWA Score - Admission Criteria [facility] Guidelines: Admission for Medically Managed Detox: Requires at least one of the followin. CIWA greater than 12 2. Seizures within the past 24 hours 3. Delirium tremens within the past 24 hours 4. Hallucinations within the past 24 hours 5. Acute intervention needed for co occurring medical disorder 6. Acute intervention needed for co occurring psychiatric disorder 7. Severe withdrawal that cannot be handled at a lower level of care (continued vomiting, continued diarrhea, abnormal vital signs) requiring intravenous medication and/or fluids 8. Admission ROS [facility] Chief Complaint: Seeking admission to Rehab Allergies/Adverse Reactions: Allergies Allergy/AdvReac Type Severity Reaction Status Date / Time pantoprazole [From Protonix] Allergy Severe Swelling Verified 02/09/19 22:53 Penicillins Allergy Severe Swelling Verified 02/09/19 22:53 History of Present Illness: Patient was transferred from [facility] to be admitted to Rehab. She has history of gastritis, GERD, hypertension, osteoporosis, seizure and insomnia. She denies suicide attempt / suicidal ideation at this time. This is her first Rehab. Patient was admitted to detox prior to transfer to [facility] for seizure and completed her detox at [facility] . - Ebola screening Have you traveled outside of the country in the last 21 days: No (N) Have you had contact with anyone from an Ebola affected area: No Do you have a fever: No - Review of Systems Constitutional: No Symptoms Reported EENT: reports: No Symptoms Reported Respiratory: reports: No Symptoms reported Cardiac: reports: No Symptoms Reported GI: reports: No Symptoms Reported : reports: No Symptoms Reported Musculoskeletal: reports: No Symptoms Reported Integumentary: reports: No Symptoms Reported Neuro: reports: No Symptoms reported Endocrine: reports: No Symptoms Reported Hematology: reports: No Symptoms Reported Psychiatric: reports: No Sypmtoms Reported, Mood/Affect Appropiate, Orientated x3 Other Systems: Reviewed and Negative Patient History - Patient Medical History Hx Anemia: No Hx Asthma: No Hx Chronic Obstructive Pulmonary Disease (COPD): No Hx Cancer: No Hx Cardiac Disorders: No Hx Hypertension: Yes (Metoprolol) Hx Seizures: Yes (Not on medication) Hx Diabetes: No Hx Gastrointestinal Disorders: Yes (Pepcid) Hx Liver Disease: No Hx Genitourinary Disorders: No Hx Sexually Transmitted Disorders: No Hx Renal Disease (ESRD): No Hx Depression: No Hx Suicide Attempt: No Hx Schizophrenia: No Other Medical History: Insomnia, Osteoporosis - - Patient Surgical History Past Surgical History: Yes Hx Neurologic Surgery: No Hx Cataract Extraction: No Hx Cardiac Surgery: No Hx Lung Surgery: No Hx Breast Surgery: No Hx Breast Biopsy: No Hx Abdominal Surgery: No Hx Appendectomy: Yes (at 32 years old) Hx Cholecystectomy: No Hx Genitourinary Surgery: No Hx Section: No Hx Orthopedic Surgery: No Anesthesia Reaction: No - PPD History Previous Implant?: Yes Documented Results: Negative w/o proof Implanted On Prior [facility] Admission?: No PPD to be Administered?: No - Reproductive History Patient is a Female of Child Bearing Age (11 -55 yrs old): Yes LMP comment: Menopausal Patient : No - Smoking Cessation Smoking history: Never smoked Have you smoked in the past 12 months: No Hx Chewing Tobacco Use: No Initiated information on smoking cessation: No - Substance & Tx. History Hx Alcohol Use: No Hx Substance Use: Yes Substance Use Type: Tranquilizers Hx Substance Use Treatment: Yes ([facility]) - Substances abused Other Other (specify): aMBIEN 10MG PILLS Substance route: Oral Frequency: Daily Amount used: 6-10 PILLS OF 10MG Age of first use: 47 Date of last use: 02/03/19 Family Disease History - Family Disease History Family History: Denies Admission Physical Exam S - Vital Signs Vital Signs: Vital Signs - 24 hr 02/09/19 22:52 Temperature 98.2 F Pulse Rate 79 Respiratory 16 Rate Blood Pressure 123/78 - Physical General Appearance: Yes: Within Normal Limits HEENTM: Yes: Within Normal Limits, EOMI, DELVIN Respiratory: Yes: Lungs Clear, Normal Breath Sounds, No Respiratory Distress Neck: Yes: Supple Breast: Yes: Breast Exam Deferred Cardiology: Yes: Regular Rhythm, Regular Rate Abdominal: Yes: Normal Bowel Sounds Genitourinary: Yes: Within Normal Limits Back: Yes: Normal Inspection Musculoskeletal: Yes: Within Normal Limits Extremities: Yes: Within Normal Limits Neurological: Yes: Within Normal Limits, Alert, Normal Mood/Affect Integumentary: Yes: Within Normal Limits Lymphatic: Yes: Within Normal Limits - Diagnostic (1) Gastritis Current Visit: Yes Status: Acute (2) GERD (gastroesophageal reflux disease) Current Visit: Yes Status: Chronic Qualifiers: Esophagitis presence: without esophagitis Qualified Code(s): K21.9 - Gastro -esophageal reflux disease without esophagitis (3) Hypertension Current Visit: Yes Status: Chronic Qualifiers: Hypertension type: essential hypertension Qualified Code(s): I10 - Essential (primary) hypertension (4) 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 (5) Osteoporosis Current Visit: Yes Status: Chronic Qualifiers: Presence of current pathological fracture: unspecified (6) Seizures Current Visit: Yes Status: Chronic Cleared for Admission S - Detox or Rehab [facility] Level of Care: Observation Bed Claeared for Rehab Admission: Yes Breathalyzer - Breathalyzer Breathalyzer: 0 Urine Drug Screen - Test Device Lot number: [id number] Expiration date: 11/20/20 - Control Is test valid?: Yes - Results Drug screen NEGATIVE: No Urine drug screen results: BZO-Benzodiazepines Inpatient Rehab Admission - Rehab Decision to Admit Inpatient rehab admission?: Yes - Initial Determination Are CD services needed?: No Free of communicable disease: Yes Not in need of hospitalization: Yes - Rehab Admission Criteria Previous failed treatment: Yes Poor recovery environment: Yes Comorbidities: Yes Lacks judgement: No Patient is meeting Inpatient Rehab admission criteria:: Yes
[2019-02-09] MEDS ORDERED: IBUPROFEN 400 MG TABLET (FP) PO PRN (23:50)
[2019-02-09] MEDS ORDERED: LOPERAMIDE HCL 2 MG CAPSULE PO PRN (23:50)
[2019-02-09] MEDS ORDERED: MAGNESIUM HYDROX 2400MG/30ML ORAL SUSPENSION 30 ML CUP PO PRN (23:50)
[2019-02-09] MEDS ORDERED: P-EPHED 60MG/TRIPROLIDI 2.5MG TABLET PO PRN (23:50)
[2019-02-09] MEDS ORDERED: MAGNESIUM CITRATE 300 ML BOTTLE PO PRN (23:50)
[2019-02-09] MEDS ORDERED: guaiFENesin 200 MG/10 ML 10 ML UNIT-DOSE CUPS PO PRN (23:50)
[2019-02-10] MEDS ORDERED: PT OWN MED DRAWER 7, Y5N ONE (09:00)
[2019-02-10] MEDS: amLODIPine BESYLATE 10 MG TABLET (FP) PO SCH (10:14)
[2019-02-10] MEDS: ENALAPRIL MALEATE 10 MG TABLET (FP) PO SCH (10:15)
[2019-02-10] MEDS: PRENATAL VITAMINS W/ FOLIC ACID TABLET (FP) PO SCH (10:16)
[2019-02-10 10:45] LABS: HEMATOCRIT 31.6 % (32.4-45.2); HEMOGLOBIN 10.7 GM/dL (10.7-15.3); MCH 32.2 pg (25.7-33.7); MCHC 33.9 g/dl (32.0-36.0); MEAN CELL VOLUME 94.8 fl (80-96); MEAN PLT VOLUME 8.2 fl (7.5-11.1); PLATELET COUNT 218 K/MM3 (134-434); RBC 3.33 M/mm3 (3.60-5.2); RDW 14.6 % (11.6-15.6); WHITE BLOOD COUNT 5.3 K/mm3 (4.0-10.0)
[2019-02-10 10:49] LABS: ALBUMIN 3.4 g/dl (3.4-5.0); BILIRUBIN,TOTAL 0.3 mg/dL (0.2-1); BLOOD UREA NITROGEN 30.6 mg/dL (7-18); POTASSIUM 3.8 mmol/L (3.5-5.1); TOT PROT 5.9 g/dl (6.4-8.2)
[2019-02-10 12:36] LABS: EPI CELLS 0.4 /HPF (0-5/HPF); HYALINE CASTS 1 /lpf (0-8); PH,URINE 6.5 (5.0-8.0); URINE APPEARANCE CLEAR; URINE BACTERIA 2.9 /hpf (NEGATIVE); URINE BILIRUBIN NEGATIVE (NEGATIVE); URINE COLOR YELLOW; URINE GLUCOSE (UA) NEGATIVE (NEGATIVE); URINE KETONE NEGATIVE (NEGATIVE); URINE LEUK ESTERASE NEGATIVE (NEGATIVE); URINE NITRITE NEGATIVE (NEGATIVE); URINE PROTEIN 1+ (NEGATIVE); URINE RBC 1 /hpf (0-4); URINE UROBILINOGEN 0.2 mg/dL (0.2-1.0); URINE WBC 1 /hpf (0-5)
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
[2019-02-10] MEDS: THIAMINE HCL 100 MG TABLET (FP) PO SCH (21:54)
[2019-02-10] MEDS: traZODone HCL 50 MG TABLET (FP) PO SCH (21:55)
[2019-02-11] MEDS ORDERED: PT OWN MED DRAWER 7, Y5N ONE ×2 (08:34→22:22)
[2019-02-11] MEDS: amLODIPine BESYLATE 10 MG TABLET (FP) PO SCH (09:45)
[2019-02-11] MEDS: ENALAPRIL MALEATE 10 MG TABLET (FP) PO SCH (09:45)
[2019-02-11] MEDS: PRENATAL VITAMINS W/ FOLIC ACID TABLET (FP) PO SCH (09:45)
[2019-02-11] MEDS: CYCLOBENZAPRINE HCL 5 MG TABLET PO PRN (15:26)
[2019-02-11] MEDS: traZODone HCL 50 MG TABLET (FP) PO SCH (21:27)
[2019-02-11] MEDS: THIAMINE HCL 100 MG TABLET (FP) PO SCH (21:27)
[2019-02-12] MEDS ORDERED: PT OWN MED DRAWER 7, Y5N ONE ×3 (08:12→15:39)
[2019-02-12] MEDS: PRENATAL VITAMINS W/ FOLIC ACID TABLET (FP) PO SCH (09:29)
[2019-02-12] MEDS: ENALAPRIL MALEATE 10 MG TABLET (FP) PO SCH ×2 (09:32→13:48)
[2019-02-12] MEDS: amLODIPine BESYLATE 10 MG TABLET (FP) PO SCH (09:32)
--- NOTE | 2019-02-12 13:01 | PN ---
[facility] Progress Note (SOAP) Subjective: PT ADMITTED FROM [facility] ON 02/09/19 TO REHAB. PT C/O DYSPEPSIA/ACID REFLUX, HX OF GASTRITIS AND PT TAKES PEPCID. ALLERGY TO PROTONIX. Objective: 02/12/19 13:03 Vital Signs - 24 hr 02/12/19 02/12/19 02/12/19 00:30 07:11 09:00 Temperature 97.1 F L Pulse Rate 100 H 102 H Respiratory 18 16 Rate Blood Pressure 119/74 107/77 Laboratory Tests 02/09/19 02/10/19 02/10/19 23:19 07:50 07:50 WBC RBC Hgb Hct MCV MCH MCHC RDW Plt Count MPV Sodium 140 Potassium 3.8 Chloride 101 Carbon Dioxide 35 H Anion Gap 4 L BUN 30.6 H Creatinine 1.0 Est GFR (CKD-EPI)AfAm 65.64 Est GFR (CKD-EPI)NonAf 56.64 Random Glucose 96 Calcium 9.0 Total Bilirubin 0.3 AST 26 ALT 36 Alkaline Phosphatase 74 Total Protein 5.9 L Albumin 3.4 Urine Color Urine Appearance Urine pH Ur Specific [place] Urine Protein Urine Glucose (UA) Urine Ketones Urine Blood Urine Nitrite Urine Bilirubin Urine Urobilinogen Ur Leukocyte Esterase Urine WBC (Auto) Urine RBC (Auto) Urine Casts (Auto) U Epithel Cells (Auto) Urine Bacteria (Auto) POC Urine HCG, Qual Negative RPR Titer Nonreactive 02/10/19 02/10/19 07:50 10:00 WBC 5.3 RBC 3.33 L Hgb 10.7 Hct 31.6 L MCV 94.8 MCH 32.2 MCHC 33.9 RDW 14.6 Plt Count 218 MPV 8.2 D Sodium Potassium Chloride Carbon Dioxide Anion Gap BUN Creatinine Est GFR (CKD-EPI)AfAm Est GFR (CKD-EPI)NonAf Random Glucose Calcium Total Bilirubin AST ALT Alkaline Phosphatase Total Protein Albumin Urine Color Yellow Urine Appearance Clear Urine pH 6.5 Ur Specific [place] 1.019 Urine Protein 1+ H Urine Glucose (UA) Negative Urine Ketones Negative Urine Blood Negative Urine Nitrite Negative Urine Bilirubin Negative Urine Urobilinogen 0.2 Ur Leukocyte Esterase Negative Urine WBC (Auto) 1 Urine RBC (Auto) 1 Urine Casts (Auto) 1 U Epithel Cells (Auto) 0.4 Urine Bacteria (Auto) 2.9 POC Urine HCG, Qual RPR Titer THROAT;NO REDNESS OR SWELLING NOTED. NORMAL OROPHARYNX. CARDIAC;S1 S2; NO MM; RRR LUNGS:CTA, YA. ABDOMEN:SOFT, +BS; NT/FLAT-ND EXTREMITIES:NO E/C/C 02/12/19 13:10 Assessment: 02/12/19 13:06 HX GERD Plan: START ZANTAC 150 MG PO BID, FIRST DOSE NOW.
[2019-02-12] MEDS: ACETAMINOPHEN 325 MG TABLET (FP) PO PRN (13:17)
[2019-02-12] MEDS ORDERED: RANITIDINE HCL 150 MG TABLET (FP) PO ONE (13:30)
[2019-02-12] MEDS: traZODone HCL 50 MG TABLET (FP) PO SCH (21:33)
[2019-02-12] MEDS: THIAMINE HCL 100 MG TABLET (FP) PO SCH (21:33)
[2019-02-12] MEDS: CYCLOBENZAPRINE HCL 5 MG TABLET PO PRN (21:33)
[2019-02-12] MEDS: RANITIDINE HCL 150 MG TABLET (FP) PO SCH (21:34)
[2019-02-13] MEDS ORDERED: PT OWN MED DRAWER 7, Y5N ONE ×2 (08:15→22:50)
[2019-02-13] MEDS: ACETAMINOPHEN 325 MG TABLET (FP) PO PRN ×2 (09:01→23:31)
[2019-02-13] MEDS: amLODIPine BESYLATE 10 MG TABLET (FP) PO SCH (09:02)
[2019-02-13] MEDS: ENALAPRIL MALEATE 10 MG TABLET (FP) PO SCH ×2 (09:02→15:02)
[2019-02-13] MEDS: PRENATAL VITAMINS W/ FOLIC ACID TABLET (FP) PO SCH (09:02)
[2019-02-13] MEDS: RANITIDINE HCL 150 MG TABLET (FP) PO SCH ×2 (09:03→21:45)
[2019-02-13] MEDS: MENTHOL/PHENOL 1 EACH UD MM PRN ×2 (09:05→21:49)
[2019-02-13] MEDS: THIAMINE HCL 100 MG TABLET (FP) PO SCH (21:45)
[2019-02-13] MEDS: traZODone HCL 50 MG TABLET (FP) PO SCH (21:45)
[2019-02-14] MEDS: ACETAMINOPHEN 325 MG TABLET (FP) PO PRN (06:49)
[2019-02-14] MEDS ORDERED: PT OWN MED DRAWER 7, Y5N ONE (08:03)
[2019-02-14] MEDS: PRENATAL VITAMINS W/ FOLIC ACID TABLET (FP) PO SCH (09:33)
[2019-02-14] MEDS: amLODIPine BESYLATE 10 MG TABLET (FP) PO SCH (09:33)
[2019-02-14] MEDS: CYCLOBENZAPRINE HCL 5 MG TABLET PO PRN (09:34)
[2019-02-14] MEDS: ENALAPRIL MALEATE 10 MG TABLET (FP) PO SCH (09:36)
[2019-02-14] MEDS: traZODone HCL 50 MG TABLET (FP) PO SCH (22:00)
[2019-02-14] MEDS: THIAMINE HCL 100 MG TABLET (FP) PO SCH (22:00)
[2019-02-15] MEDS: ACETAMINOPHEN 325 MG TABLET (FP) PO PRN ×3 (04:58→18:25)
[2019-02-15] MEDS: MAG HYDROX/AL HYDROX/SIMETH 30 ML UNIT-DOSE CUP PO PRN (05:01)
[2019-02-15] MEDS ORDERED: PT OWN MED DRAWER 7, Y5N ONE ×4 (08:56→21:59)
[2019-02-15] MEDS: PRENATAL VITAMINS W/ FOLIC ACID TABLET (FP) PO SCH (09:50)
[2019-02-15] MEDS: amLODIPine BESYLATE 10 MG TABLET (FP) PO SCH (09:50)
[2019-02-15] MEDS: ENALAPRIL MALEATE 10 MG TABLET (FP) PO SCH (09:50)
[2019-02-15] MEDS: CYCLOBENZAPRINE HCL 5 MG TABLET PO PRN (09:54)
[2019-02-15] MEDS: THIAMINE HCL 100 MG TABLET (FP) PO SCH (21:37)
[2019-02-15] MEDS: traZODone HCL 50 MG TABLET (FP) PO SCH (21:38)
[2019-02-16] MEDS: ACETAMINOPHEN 325 MG TABLET (FP) PO PRN (03:50)
[2019-02-16] MEDS ORDERED: PT OWN MED DRAWER 7, Y5N ONE (09:02)
[2019-02-16] MEDS: amLODIPine BESYLATE 10 MG TABLET (FP) PO SCH (09:03)
[2019-02-16] MEDS: PRENATAL VITAMINS W/ FOLIC ACID TABLET (FP) PO SCH (09:03)
[2019-02-16] MEDS: CYCLOBENZAPRINE HCL 5 MG TABLET PO PRN ×2 (09:04→21:35)
[2019-02-16] MEDS: ENALAPRIL MALEATE 10 MG TABLET (FP) PO SCH (09:04)
[2019-02-16] MEDS: traZODone HCL 50 MG TABLET (FP) PO SCH (21:36)
[2019-02-16] MEDS: THIAMINE HCL 100 MG TABLET (FP) PO SCH (21:36)
[2019-02-16] MEDS: MELATONIN 5 MG TABLETS PO PRN (21:37)
[2019-02-17] MEDS: ACETAMINOPHEN 325 MG TABLET (FP) PO PRN (06:30)
[2019-02-17] MEDS ORDERED: PT OWN MED DRAWER 7, Y5N ONE ×2 (08:22→09:27)
[2019-02-17] MEDS: PRENATAL VITAMINS W/ FOLIC ACID TABLET (FP) PO SCH (09:25)
[2019-02-17] MEDS: ENALAPRIL MALEATE 10 MG TABLET (FP) PO SCH (09:25)
[2019-02-17] MEDS: amLODIPine BESYLATE 10 MG TABLET (FP) PO SCH (09:25)
[2019-02-17] MEDS: CYCLOBENZAPRINE HCL 5 MG TABLET PO PRN (09:27)
[2019-02-17] MEDS: MAG HYDROX/AL HYDROX/SIMETH 30 ML UNIT-DOSE CUP PO PRN (09:29)
[2019-02-17] MEDS: THIAMINE HCL 100 MG TABLET (FP) PO SCH (21:28)
[2019-02-17] MEDS: traZODone HCL 50 MG TABLET (FP) PO SCH (21:28)
[2019-02-17] MEDS: MELATONIN 5 MG TABLETS PO PRN (21:29)
[2019-02-18] MEDS ORDERED: PT OWN MED DRAWER 7, Y5N ONE ×3 (06:26→09:39)
[2019-02-18] MEDS: ACETAMINOPHEN 325 MG TABLET (FP) PO PRN ×3 (06:27→17:58)
[2019-02-18] MEDS: CYCLOBENZAPRINE HCL 5 MG TABLET PO PRN (06:27)
[2019-02-18] MEDS: amLODIPine BESYLATE 10 MG TABLET (FP) PO SCH (09:38)
[2019-02-18] MEDS: PRENATAL VITAMINS W/ FOLIC ACID TABLET (FP) PO SCH (09:38)
[2019-02-18] MEDS: LIDOCAINE 5% TOPICAL PATCH TP SCH (09:44)
[2019-02-18] MEDS: ENALAPRIL MALEATE 10 MG TABLET (FP) PO SCH (10:49)
[2019-02-18] MEDS: MAG HYDROX/AL HYDROX/SIMETH 30 ML UNIT-DOSE CUP PO PRN (10:52)
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
[2019-02-18] MEDS ORDERED: BISMUTH SUBSALICYLATE 524 MG/30 ML UD PO PRN (12:16)
[2019-02-18] MEDS: traZODone HCL 50 MG TABLET (FP) PO SCH (21:30)
[2019-02-18] MEDS: THIAMINE HCL 100 MG TABLET (FP) PO SCH (21:30)
[2019-02-18] MEDS: LIDOCAINE PATCH REMOVAL MC SCH (21:32)
[2019-02-19] MEDS: CYCLOBENZAPRINE HCL 10 MG TABLET (FP) PO PRN ×2 (04:43→16:01)
[2019-02-19] MEDS: MAG HYDROX/AL HYDROX/SIMETH 30 ML UNIT-DOSE CUP PO PRN (04:49)
[2019-02-19] MEDS ORDERED: PT OWN MED DRAWER 7, Y5N ONE ×5 (08:28→21:07)
[2019-02-19] MEDS: amLODIPine BESYLATE 10 MG TABLET (FP) PO SCH (09:33)
[2019-02-19] MEDS: ENALAPRIL MALEATE 10 MG TABLET (FP) PO SCH (09:34)
[2019-02-19] MEDS: LIDOCAINE 5% TOPICAL PATCH TP SCH (09:36)
[2019-02-19] MEDS: PRENATAL VITAMINS W/ FOLIC ACID TABLET (FP) PO SCH (09:37)
[2019-02-19] MEDS ORDERED: BISACODYL 10 MG SUPP.RECT RC ONE (09:53)
--- NOTE | 2019-02-19 09:56 | PN ---
[facility] Progress Note Note: PT C/O CONSTIPATION. Vital Signs - 24 hr 02/18/19 02/19/19 02/19/19 10:49 03:30 07:11 Temperature 98.4 F Pulse Rate 77 91 H Respiratory 16 18 Rate Blood Pressure 151/88 152/94 02/19/19 09:03 Temperature Pulse Rate 106 H Respiratory 18 Rate Blood Pressure 145/95 PLAN: DULCOLAX SUPPOSITORY X 1 COLACE 100 MG PO TID.
[2019-02-19] MEDS: HYDROCORTISONE 1% TOPICAL CREAM 30 GM TUBE TP SCH ×2 (12:37→21:25)
[2019-02-19] MEDS: DOCUSATE SODIUM 100 MG CAPSULE (FP) PO SCH ×2 (14:14→21:23)
[2019-02-19] MEDS: ACETAMINOPHEN 325 MG TABLET (FP) PO PRN (14:15)
[2019-02-19] MEDS: traZODone HCL 50 MG TABLET (FP) PO SCH (21:23)
[2019-02-19] MEDS: THIAMINE HCL 100 MG TABLET (FP) PO SCH (21:23)
[2019-02-19] MEDS: LIDOCAINE PATCH REMOVAL MC SCH (21:25)
[2019-02-20] MEDS: DOCUSATE SODIUM 100 MG CAPSULE (FP) PO SCH ×3 (06:25→21:10)
[2019-02-20] MEDS: CYCLOBENZAPRINE HCL 10 MG TABLET (FP) PO PRN (06:25)
[2019-02-20] MEDS: ACETAMINOPHEN 325 MG TABLET (FP) PO PRN ×2 (06:25→18:07)
[2019-02-20] MEDS: MAG HYDROX/AL HYDROX/SIMETH 30 ML UNIT-DOSE CUP PO PRN ×2 (06:37→18:09)
[2019-02-20] MEDS: LIDOCAINE 5% TOPICAL PATCH TP SCH (09:42)
[2019-02-20] MEDS: PRENATAL VITAMINS W/ FOLIC ACID TABLET (FP) PO SCH (09:43)
[2019-02-20] MEDS: amLODIPine BESYLATE 10 MG TABLET (FP) PO SCH (09:43)
[2019-02-20] MEDS: HYDROCORTISONE 1% TOPICAL CREAM 30 GM TUBE TP SCH ×2 (09:43→21:11)
[2019-02-20] MEDS: ENALAPRIL MALEATE 10 MG TABLET (FP) PO SCH (09:44)
[2019-02-20] MEDS: LIDOCAINE PATCH REMOVAL MC SCH (21:10)
[2019-02-20] MEDS: traZODone HCL 50 MG TABLET (FP) PO SCH (21:10)
[2019-02-20] MEDS: MELATONIN 5 MG TABLETS PO PRN (21:10)
[2019-02-20] MEDS: THIAMINE HCL 100 MG TABLET (FP) PO SCH (21:10)
[2019-02-21] MEDS: ACETAMINOPHEN 325 MG TABLET (FP) PO PRN (06:14)
[2019-02-21] MEDS: CYCLOBENZAPRINE HCL 10 MG TABLET (FP) PO PRN ×2 (06:15→14:02)
[2019-02-21] MEDS: DOCUSATE SODIUM 100 MG CAPSULE (FP) PO SCH ×3 (06:15→21:13)
[2019-02-21] MEDS: MAG HYDROX/AL HYDROX/SIMETH 30 ML UNIT-DOSE CUP PO PRN (06:18)
[2019-02-21] MEDS: TETRAHYDROZOLINE HCL EYE DROPS OD PRN (06:18)
[2019-02-21] MEDS ORDERED: PT OWN MED DRAWER 7, Y5N ONE (09:15)
[2019-02-21] MEDS: LIDOCAINE 5% TOPICAL PATCH TP SCH (09:27)
[2019-02-21] MEDS: HYDROCORTISONE 1% TOPICAL CREAM 30 GM TUBE TP SCH ×2 (09:28→21:14)
[2019-02-21] MEDS: PRENATAL VITAMINS W/ FOLIC ACID TABLET (FP) PO SCH (09:28)
[2019-02-21] MEDS: amLODIPine BESYLATE 10 MG TABLET (FP) PO SCH (09:28)
[2019-02-21] MEDS: ENALAPRIL MALEATE 10 MG TABLET (FP) PO SCH (09:28)
--- NOTE | 2019-02-21 17:24 | PN ---
Psychiatric Progress Note Vital Signs: Vital Signs Period Temp Pulse Resp BP Sys/Quispe Pulse Ox Last 24 Hr 98.1 F-98.2 F 84-108 16-16 133-143/82-92 Date of Session: 02/21/19 Chief Complaint:: "I have lots of anxiety" HPI: Patient admitted to 3E for history of ambien abuse. ROS: Patient is coherent, alert and oriented X3. Current Medications: Active Medications Generic Name Dose Route Start Last Admin Trade Name Parag PRN Reason Stop Dose Admin Acetaminophen 650 mg 02/09/19 23:50 02/21/19 06:14 Tylenol - PO 650 mg Q4H PRN Administration FEVER Al Hydroxide/Mg Hydroxide 30 ml 02/09/19 23:50 02/21/19 06:18 Mylanta Oral Suspension - PO 30 ml Q6H PRN Administration DYSPEPSIA Amlodipine Besylate 10 mg 02/10/19 10:00 02/21/19 09:28 Norvasc - PO 10 mg DAILY BASIA Administration Cyclobenzaprine HCl 10 mg 02/18/19 12:15 02/21/19 14:02 Flexeril - PO 10 mg BID PRN Administration BACK PAIN Docusate Sodium 100 mg 02/19/19 14:00 02/21/19 14:02 Colace - PO 100 mg TID BASIA Administration Enalapril Maleate 20 mg 02/10/19 10:00 02/21/19 09:28 Vasotec - PO 20 mg DAILY BASIA Administration Eucalyptus/Menthol/Phenol/Sorbitol 1 each 02/09/19 23:50 02/13/19 21:49 Cepastat Lozenge - MM 1 each Q4H PRN Administration SORE THROAT Guaifenesin 10 ml 02/09/19 23:50 Robitussin - PO Q6H PRN COUGH Hydrocortisone 1 applic 02/19/19 10:00 02/21/19 09:28 Hytone 1% Cream - TP 1 applic BID BASIA Administration Lidocaine 1 patch 02/18/19 10:00 02/21/19 09:27 Lidoderm Patch - TP Not Given DAILY BASIA Loperamide HCl 4 mg 02/09/19 23:50 Imodium - PO Q6H PRN DIARRHEA Magnesium Citrate 300 ml 02/09/19 23:50 Citroma - PO Q48H PRN CONSTIPATION Magnesium Hydroxide 30 ml 02/09/19 23:50 02/19/19 09:37 Milk Of Magnesia - PO 30 ml DAILY PRN Administration CONSTIPATION Melatonin 5 mg 02/09/19 22:00 02/20/19 21:10 Melatonin PO 5 mg HS PRN Administration INSOMNIA Metoprolol Succinate 50 mg 02/10/19 10:00 02/21/19 09:28 Toprol Xl - PO 50 mg DAILY BASIA Administration Miscellaneous 1 each 02/18/19 22:00 02/20/19 21:10 Lidoderm Patch Removal MC 1 each DAILY@2200 BASIA Administration Multivit/Folic Acid/Iron 1 tab 02/10/19 10:00 02/21/19 09:28 Vitamins (Sjr) - PO Not Given DAILY BASIA Pseudoephedrine/Triprolidine 1 combo 02/09/19 23:50 Actifed - PO TID PRN NASAL CONGESTION Tetrahydrozoline HCl 1 drop 02/20/19 11:57 02/21/19 06:18 Visine - OD 1 drop BID PRN Administration DRY EYES Thiamine HCl 100 mg 02/10/19 22:00 02/20/19 21:10 Vitamin B1 - PO 100 mg HS BASIA Administration Trazodone HCl 150 mg 02/10/19 22:00 02/20/19 21:10 Desyrel - PO 150 mg HS BASIA Administration Medication(s) Change(s): Yes. Current Side Effect: No Lab tests ordered: No Lab tests reviewed: Yes Provider note:: Patient reports worsning anxiety. Orders reviewed and noted not to have antianxiety medications ordered. Patient accepted vistaril 25mg upon her first admission to detox which reportedly made her more anxious. Patient aware that she was experiencing withdrawals from ambien when she accepted vistaril and is requesting to accept medication now that she is no longer experiencing withdrawal symptoms. Will order vistaril 25mg q6h. Benefits and side effects discussed. Verbal consent given. Total face to face time:: 20 Mental Status Exam - Mental Status Exam Alert and Oriented to: Time, Place, Person Cognitive Function: Good Patient Appearance: Well Groomed Mood: Anxious, Euthymic Affect: Mood Congruent Patient Behavior: Cooperative Speech Pattern: Appropriate Voice Loudness: Normal Thought Process: Goal Oriented Thought Disorder: Not Present Hallucinations: Denies Suicidal Ideation: Denies Homicidal Ideation: Denies Insight/Judgement: Poor Sleep: Fair Appetite: Fair Muscle strength/Tone: Normal Gait/Station: Normal Psychiatric Treatment Plan - Problem List (1) Severe zolpidem dependence Current Visit: Yes (2) Substance-induced sleep disorder Current Visit: Yes (3) Substance-induced anxiety disorder Current Visit: Yes
[2019-02-21] MEDS: THIAMINE HCL 100 MG TABLET (FP) PO SCH (21:13)
[2019-02-21] MEDS: traZODone HCL 50 MG TABLET (FP) PO SCH (21:14)
[2019-02-21] MEDS: LIDOCAINE PATCH REMOVAL MC SCH (21:14)
[2019-02-21] MEDS: hydrOXYzine PAMOATE 25 MG CAPSULE (FP) PO PRN (21:15)
[2019-02-22] MEDS: ACETAMINOPHEN 325 MG TABLET (FP) PO PRN ×3 (01:58→22:33)
[2019-02-22] MEDS: MAG HYDROX/AL HYDROX/SIMETH 30 ML UNIT-DOSE CUP PO PRN (02:04)
[2019-02-22] MEDS: CYCLOBENZAPRINE HCL 10 MG TABLET (FP) PO PRN (06:28)
[2019-02-22] MEDS: hydrOXYzine PAMOATE 25 MG CAPSULE (FP) PO PRN ×3 (06:33→21:44)
[2019-02-22] MEDS: DOCUSATE SODIUM 100 MG CAPSULE (FP) PO SCH ×3 (07:11→21:43)
[2019-02-22] MEDS ORDERED: PT OWN MED DRAWER 7, Y5N ONE (08:34)
[2019-02-22] MEDS: ENALAPRIL MALEATE 10 MG TABLET (FP) PO SCH (09:30)
[2019-02-22] MEDS: HYDROCORTISONE 1% TOPICAL CREAM 30 GM TUBE TP SCH ×2 (09:30→21:43)
[2019-02-22] MEDS: LIDOCAINE 5% TOPICAL PATCH TP SCH (09:30)
[2019-02-22] MEDS: PRENATAL VITAMINS W/ FOLIC ACID TABLET (FP) PO SCH (09:31)
[2019-02-22] MEDS: amLODIPine BESYLATE 10 MG TABLET (FP) PO SCH (09:31)
[2019-02-22] MEDS: LIDOCAINE PATCH REMOVAL MC SCH (21:41)
[2019-02-22] MEDS: traZODone HCL 50 MG TABLET (FP) PO SCH (21:42)
[2019-02-22] MEDS: THIAMINE HCL 100 MG TABLET (FP) PO SCH (21:43)
[2019-02-23] MEDS: MELATONIN 5 MG TABLETS PO PRN (00:49)
[2019-02-23] MEDS: hydrOXYzine PAMOATE 25 MG CAPSULE (FP) PO PRN ×3 (06:36→21:48)
[2019-02-23] MEDS: DOCUSATE SODIUM 100 MG CAPSULE (FP) PO SCH ×3 (06:36→21:46)
[2019-02-23] MEDS: CYCLOBENZAPRINE HCL 10 MG TABLET (FP) PO PRN (06:40)
[2019-02-23] MEDS ORDERED: PT OWN MED DRAWER 7, Y5N ONE ×2 (08:48→21:48)
[2019-02-23] MEDS: HYDROCORTISONE 1% TOPICAL CREAM 30 GM TUBE TP SCH ×2 (09:37→21:47)
[2019-02-23] MEDS: ENALAPRIL MALEATE 10 MG TABLET (FP) PO SCH (09:37)
[2019-02-23] MEDS: amLODIPine BESYLATE 10 MG TABLET (FP) PO SCH (09:37)
[2019-02-23] MEDS: PRENATAL VITAMINS W/ FOLIC ACID TABLET (FP) PO SCH (09:38)
[2019-02-23] MEDS: LIDOCAINE 5% TOPICAL PATCH TP SCH (09:38)
[2019-02-23] MEDS: ACETAMINOPHEN 325 MG TABLET (FP) PO PRN ×2 (09:42→21:45)
[2019-02-23] MEDS: MAG HYDROX/AL HYDROX/SIMETH 30 ML UNIT-DOSE CUP PO PRN (12:38)
[2019-02-23] MEDS: THIAMINE HCL 100 MG TABLET (FP) PO SCH (21:43)
[2019-02-23] MEDS: traZODone HCL 50 MG TABLET (FP) PO SCH (21:45)
[2019-02-23] MEDS: LIDOCAINE PATCH REMOVAL MC SCH (21:50)
[2019-02-24] MEDS: CYCLOBENZAPRINE HCL 10 MG TABLET (FP) PO PRN (06:27)
[2019-02-24] MEDS: hydrOXYzine PAMOATE 25 MG CAPSULE (FP) PO PRN ×3 (06:27→21:57)
[2019-02-24] MEDS: ACETAMINOPHEN 325 MG TABLET (FP) PO PRN ×3 (06:27→21:57)
[2019-02-24] MEDS: DOCUSATE SODIUM 100 MG CAPSULE (FP) PO SCH ×3 (06:29→21:57)
[2019-02-24] MEDS ORDERED: PT OWN MED DRAWER 7, Y5N ONE (08:43)
[2019-02-24] MEDS: amLODIPine BESYLATE 10 MG TABLET (FP) PO SCH (09:25)
[2019-02-24] MEDS: ENALAPRIL MALEATE 10 MG TABLET (FP) PO SCH (09:25)
[2019-02-24] MEDS: TETRAHYDROZOLINE HCL EYE DROPS OD PRN (09:26)
[2019-02-24] MEDS: PRENATAL VITAMINS W/ FOLIC ACID TABLET (FP) PO SCH (10:55)
[2019-02-24] MEDS: LIDOCAINE 5% TOPICAL PATCH TP SCH (10:56)
[2019-02-24] MEDS: HYDROCORTISONE 1% TOPICAL CREAM 30 GM TUBE TP SCH ×2 (10:56→21:59)
[2019-02-24] MEDS: MAG HYDROX/AL HYDROX/SIMETH 30 ML UNIT-DOSE CUP PO PRN (10:58)
[2019-02-24] MEDS: THIAMINE HCL 100 MG TABLET (FP) PO SCH (21:57)
[2019-02-24] MEDS: traZODone HCL 50 MG TABLET (FP) PO SCH (21:57)
[2019-02-24] MEDS: MELATONIN 5 MG TABLETS PO PRN (21:57)
[2019-02-24] MEDS: LIDOCAINE PATCH REMOVAL MC SCH (21:59)
[2019-02-25] MEDS: DOCUSATE SODIUM 100 MG CAPSULE (FP) PO SCH ×3 (06:40→21:53)
[2019-02-25] MEDS: CYCLOBENZAPRINE HCL 10 MG TABLET (FP) PO PRN (06:42)
[2019-02-25] MEDS: ACETAMINOPHEN 325 MG TABLET (FP) PO PRN ×2 (06:42→21:36)
[2019-02-25] MEDS: hydrOXYzine PAMOATE 25 MG CAPSULE (FP) PO PRN ×3 (06:42→21:36)
[2019-02-25] MEDS: LIDOCAINE 5% TOPICAL PATCH TP SCH (09:24)
[2019-02-25] MEDS: ENALAPRIL MALEATE 10 MG TABLET (FP) PO SCH (09:24)
[2019-02-25] MEDS: PRENATAL VITAMINS W/ FOLIC ACID TABLET (FP) PO SCH (09:24)
[2019-02-25] MEDS: amLODIPine BESYLATE 10 MG TABLET (FP) PO SCH (09:24)
[2019-02-25] MEDS: RANITIDINE HCL 150 MG TABLET (FP) PO SCH ×2 (09:24→21:37)
[2019-02-25] MEDS: HYDROCORTISONE 1% TOPICAL CREAM 30 GM TUBE TP SCH ×2 (09:28→21:53)
[2019-02-25] MEDS: traZODone HCL 50 MG TABLET (FP) PO SCH (21:36)
[2019-02-25] MEDS: THIAMINE HCL 100 MG TABLET (FP) PO SCH (21:36)
[2019-02-25] MEDS: LIDOCAINE PATCH REMOVAL MC SCH (21:54)
[2019-02-26] MEDS: DOCUSATE SODIUM 100 MG CAPSULE (FP) PO SCH ×2 (06:41→13:29)
[2019-02-26] MEDS: ACETAMINOPHEN 325 MG TABLET (FP) PO PRN (06:41)
[2019-02-26] MEDS: hydrOXYzine PAMOATE 25 MG CAPSULE (FP) PO PRN (06:42)
[2019-02-26] MEDS ORDERED: PT OWN MED DRAWER 7, Y5N ONE (08:39)
[2019-02-26] MEDS: PRENATAL VITAMINS W/ FOLIC ACID TABLET (FP) PO SCH (09:19)
[2019-02-26] MEDS: RANITIDINE HCL 150 MG TABLET (FP) PO SCH ×2 (09:19→21:40)
[2019-02-26] MEDS: ENALAPRIL MALEATE 10 MG TABLET (FP) PO SCH (09:19)
[2019-02-26] MEDS: amLODIPine BESYLATE 10 MG TABLET (FP) PO SCH (09:20)
[2019-02-26] MEDS: LIDOCAINE 5% TOPICAL PATCH TP SCH (09:20)
[2019-02-26] MEDS: HYDROCORTISONE 1% TOPICAL CREAM 30 GM TUBE TP SCH ×2 (09:21→21:44)
[2019-02-26] MEDS: TETRAHYDROZOLINE HCL EYE DROPS OD PRN (09:21)
--- NOTE | 2019-02-26 12:18 | PN ---
Psychiatric Progress Note Vital Signs: Vital Signs Period Temp Pulse Resp BP Sys/Quispe Pulse Ox Last 24 Hr 97.9 F 79-94 16-18 129-134/80-86 Date of Session: 02/26/19 Chief Complaint:: " I can't sleep too well." HPI: Patient admitted to [facility] for ambien dependence. Patient reports poor sleep. ROS: Patient is coherent, alert and oriented X3. Current Medications: Active Medications Generic Name Dose Route Start Last Admin Trade Name Freq PRN Reason Stop Dose Admin Acetaminophen 650 mg 02/09/19 23:50 02/26/19 06:41 Tylenol - PO 650 mg Q4H PRN Administration FEVER Al Hydroxide/Mg Hydroxide 30 ml 02/09/19 23:50 02/24/19 10:58 Mylanta Oral Suspension - PO 30 ml Q6H PRN Administration DYSPEPSIA Amlodipine Besylate 10 mg 02/10/19 10:00 02/26/19 09:20 Norvasc - PO 10 mg DAILY BASIA Administration Cyclobenzaprine HCl 10 mg 02/18/19 12:15 02/25/19 06:42 Flexeril - PO 10 mg BID PRN Administration BACK PAIN Docusate Sodium 100 mg 02/19/19 14:00 02/26/19 06:41 Colace - PO Not Given TID BASIA Enalapril Maleate 20 mg 02/10/19 10:00 02/26/19 09:19 Vasotec - PO 20 mg DAILY BASIA Administration Eucalyptus/Menthol/Phenol/Sorbitol 1 each 02/09/19 23:50 02/13/19 21:49 Cepastat Lozenge - MM 1 each Q4H PRN Administration SORE THROAT Guaifenesin 10 ml 02/09/19 23:50 Robitussin - PO Q6H PRN COUGH Hydrocortisone 1 applic 02/19/19 10:00 02/26/19 09:21 Hytone 1% Cream - TP 1 applic BID BASIA Administration Hydroxyzine Pamoate 25 mg 02/21/19 17:58 02/26/19 06:42 Vistaril - PO 25 mg Q6H PRN Administration ANXIETY Lidocaine 1 patch 02/18/19 10:00 02/26/19 09:20 Lidoderm Patch - TP 1 patch DAILY BASIA Administration Loperamide HCl 4 mg 02/09/19 23:50 Imodium - PO Q6H PRN DIARRHEA Magnesium Citrate 300 ml 02/09/19 23:50 Citroma - PO Q48H PRN CONSTIPATION Magnesium Hydroxide 30 ml 02/09/19 23:50 02/19/19 09:37 Milk Of Magnesia - PO 30 ml DAILY PRN Administration CONSTIPATION Melatonin 5 mg 02/09/19 22:00 02/24/19 21:57 Melatonin PO 5 mg HS PRN Administration INSOMNIA Metoprolol Succinate 50 mg 02/10/19 10:00 02/26/19 09:20 Toprol Xl - PO 50 mg DAILY BASIA Administration Miscellaneous 1 each 02/18/19 22:00 02/25/19 21:54 Lidoderm Patch Removal MC 1 each DAILY@2200 BASIA Administration Multivit/Folic Acid/Iron 1 tab 02/10/19 10:00 02/26/19 09:19 Vitamins (Sjr) - PO 1 tab DAILY BASIA Administration Pseudoephedrine/Triprolidine 1 combo 02/09/19 23:50 Actifed - PO TID PRN NASAL CONGESTION Ranitidine HCl 150 mg 02/25/19 10:00 02/26/19 09:19 Zantac - PO 150 mg BID BASIA Administration Tetrahydrozoline HCl 1 drop 02/20/19 11:57 02/26/19 09:21 Visine - OD 1 drop BID PRN Administration DRY EYES Thiamine HCl 100 mg 02/10/19 22:00 02/25/19 21:36 Vitamin B1 - PO 100 mg HS BASIA Administration Trazodone HCl 150 mg 02/10/19 22:00 02/25/19 21:36 Desyrel - PO 150 mg HS BASIA Administration Medication(s) Change(s): Yes. Lab tests reviewed: Yes Provider note:: Patient reports poor sleep. Dr. Rowe's note read and appreciated. Ms. Shrestha is currently prescribed trazodone 150mg HS + Melatonin 5mg. States the melatonin is ineffective and prefers to take a vistaril dose for insomnia in addition to the trazodone. Will d/c melatonin and order vistaril 50mg HS for insomnia. Patient took vistaril this morning and stated it was effective. Will d/c melatonin 5mg. Benefits and side effects discussed. Verbal consent given. Total face to face time:: 25 Mental Status Exam - Mental Status Exam Alert and Oriented to: Time, Place, Person Cognitive Function: Good Patient Appearance: Well Groomed Mood: Euthymic Affect: Mood Congruent Patient Behavior: Cooperative Speech Pattern: Appropriate Voice Loudness: Moderately Soft/Quiet Thought Process: Intact, Goal Oriented Thought Disorder: Not Present Hallucinations: Denies Suicidal Ideation: Denies Homicidal Ideation: Denies Insight/Judgement: Poor Sleep: Poorly Appetite: Fair Muscle strength/Tone: Normal Gait/Station: Normal Psychiatric Treatment Plan - Problem List (1) Severe zolpidem dependence Current Visit: Yes (2) Substance-induced sleep disorder Current Visit: Yes (3) Substance-induced anxiety disorder Current Visit: Yes
[2019-02-26] MEDS: CYCLOBENZAPRINE HCL 10 MG TABLET (FP) PO PRN (13:30)
[2019-02-26] MEDS: traZODone HCL 50 MG TABLET (FP) PO SCH (21:40)
[2019-02-26] MEDS: THIAMINE HCL 100 MG TABLET (FP) PO SCH (21:40)
[2019-02-26] MEDS: LIDOCAINE PATCH REMOVAL MC SCH (21:40)
[2019-02-26] MEDS: hydrOXYzine PAMOATE 50 MG CAPSULE (FP) PO PRN (21:42)
[2019-02-26] MEDS: POLYETHYLENE GLYCOL 3350 119 GM BTL PO SCH (21:45)
[2019-02-27] MEDS: ACETAMINOPHEN 325 MG TABLET (FP) PO PRN ×2 (06:20→21:39)
[2019-02-27] MEDS: hydrOXYzine PAMOATE 25 MG CAPSULE (FP) PO PRN ×2 (06:21→14:56)
[2019-02-27] MEDS: LIDOCAINE 5% TOPICAL PATCH TP SCH (09:39)
[2019-02-27] MEDS: ENALAPRIL MALEATE 10 MG TABLET (FP) PO SCH (09:39)
[2019-02-27] MEDS: amLODIPine BESYLATE 10 MG TABLET (FP) PO SCH (09:39)
[2019-02-27] MEDS: HYDROCORTISONE 1% TOPICAL CREAM 30 GM TUBE TP SCH ×2 (09:39→21:43)
[2019-02-27] MEDS: RANITIDINE HCL 150 MG TABLET (FP) PO SCH ×2 (09:39→21:38)
[2019-02-27] MEDS: PRENATAL VITAMINS W/ FOLIC ACID TABLET (FP) PO SCH (09:42)
[2019-02-27] MEDS: POLYETHYLENE GLYCOL 3350 119 GM BTL PO SCH ×2 (09:42→21:43)
[2019-02-27] MEDS: TETRAHYDROZOLINE HCL EYE DROPS OD PRN (09:43)
[2019-02-27] MEDS: CYCLOBENZAPRINE HCL 10 MG TABLET (FP) PO PRN (11:35)
[2019-02-27] MEDS: THIAMINE HCL 100 MG TABLET (FP) PO SCH (21:38)
[2019-02-27] MEDS: traZODone HCL 50 MG TABLET (FP) PO SCH (21:39)
[2019-02-27] MEDS: hydrOXYzine PAMOATE 50 MG CAPSULE (FP) PO PRN (21:40)
[2019-02-27] MEDS: LIDOCAINE PATCH REMOVAL MC SCH (21:43)
[2019-02-28] MEDS: hydrOXYzine PAMOATE 25 MG CAPSULE (FP) PO PRN ×2 (06:20→14:03)
[2019-02-28] MEDS: ACETAMINOPHEN 325 MG TABLET (FP) PO PRN ×3 (06:20→21:54)
[2019-02-28] MEDS: amLODIPine BESYLATE 10 MG TABLET (FP) PO SCH (09:43)
[2019-02-28] MEDS: ENALAPRIL MALEATE 10 MG TABLET (FP) PO SCH (09:43)
[2019-02-28] MEDS: RANITIDINE HCL 150 MG TABLET (FP) PO SCH ×2 (09:44→21:54)
[2019-02-28] MEDS: CYCLOBENZAPRINE HCL 10 MG TABLET (FP) PO PRN (09:46)
[2019-02-28] MEDS: HYDROCORTISONE 1% TOPICAL CREAM 30 GM TUBE TP SCH ×2 (09:47→22:45)
[2019-02-28] MEDS: PRENATAL VITAMINS W/ FOLIC ACID TABLET (FP) PO SCH (09:47)
[2019-02-28] MEDS: LIDOCAINE 5% TOPICAL PATCH TP SCH (09:47)
[2019-02-28] MEDS: POLYETHYLENE GLYCOL 3350 119 GM BTL PO SCH ×2 (09:47→22:45)
--- NOTE | 2019-02-28 11:11 | PN ---
[facility] Progress Note (SOAP) Subjective: Patient to be discharged tomorrow. HOSPITAL COURSE: patient attended groups, had 1:1 meeting with her counselor, was seen by mental health provider for insomnia. She was seen by medical provider for complaints of GERD, constipation , and dry skin, which were all treated and resolved. She was adherent to her treatment plan and medication regimen. Objective: Physical General Appearance: appropriate, no apparent distress HEENTM: PERRLA Respiratory: Lungs Clear, Neck: Supple Cardiology: Regular Rhythm & Rate Abdominal: +Bowel Sounds; soft, non-tender, non-distended, flat Musculoskeletal: ROM limited by pain, Full weight bearing, gait steady Neurological: CN 2-12 intact, no neurological deficits noted Integumentary: skin dry, color consistent throughout trunk and extremities 02/28/19 11:06 CBC, BMP 02/10/19 07:50 02/10/19 07:50 Vital Signs (72 hours) 02/26/19 02/26/19 02/26/19 03:30 06:40 09:04 Temperature 97.9 F Pulse Rate 79 94 H Respiratory 16 16 18 Rate Blood Pressure 134/86 129/80 02/27/19 02/27/19 02/27/19 00:30 03:30 07:03 Temperature 98.1 F Pulse Rate 78 Respiratory 16 16 18 Rate Blood Pressure 145/86 02/27/19 02/28/19 02/28/19 11:10 00:30 07:00 Temperature 98.3 F Pulse Rate 91 H 81 Respiratory 16 18 Rate Blood Pressure 136/79 143/88 02/28/19 09:30 Temperature Pulse Rate 96 H Respiratory 18 Rate Blood Pressure 138/85 Assessment: Medically stable for discharge Discharge Dx: GERD Zolipen dependence HTN chronic pain 02/28/19 11:15 Plan: Patient is moving to [place] and will seek on-going substance use treatment there as well as medical care. Prescriptions have been sent to [facility].
--- NOTE | 2019-02-28 12:04 | PN ---
[facility] Progress Note Note: Patient is scheduled for discharge tomorrow. Script for 30 days supply of Trazadone 150 mg/hs will be electronically transmitted to [facility] at [address] [place], [place] [id number]
[2019-02-28] MEDS: traZODone HCL 50 MG TABLET (FP) PO SCH (21:54)
[2019-02-28] MEDS: THIAMINE HCL 100 MG TABLET (FP) PO SCH (21:54)
[2019-02-28] MEDS: hydrOXYzine PAMOATE 50 MG CAPSULE (FP) PO PRN (21:54)
[2019-02-28] MEDS: LIDOCAINE PATCH REMOVAL MC SCH (22:45)
[2019-03-01] MEDS: hydrOXYzine PAMOATE 25 MG CAPSULE (FP) PO PRN ×2 (06:21→14:05)
[2019-03-01] MEDS: ACETAMINOPHEN 325 MG TABLET (FP) PO PRN ×2 (06:23→14:02)
[2019-03-01 06:41] VITALS: TEMP 97.7
[2019-03-01 09:18] VITALS: BP 145/94; PULSE 111
[2019-03-01] MEDS: TETRAHYDROZOLINE HCL EYE DROPS OD PRN (09:42)
[2019-03-01] MEDS: HYDROCORTISONE 1% TOPICAL CREAM 30 GM TUBE TP SCH (09:43)
[2019-03-01] MEDS: POLYETHYLENE GLYCOL 3350 119 GM BTL PO SCH (09:43)
[2019-03-01] MEDS: ENALAPRIL MALEATE 10 MG TABLET (FP) PO SCH (09:44)
[2019-03-01] MEDS: amLODIPine BESYLATE 10 MG TABLET (FP) PO SCH (09:44)
[2019-03-01] MEDS: RANITIDINE HCL 150 MG TABLET (FP) PO SCH (09:44)
[2019-03-01] MEDS: PRENATAL VITAMINS W/ FOLIC ACID TABLET (FP) PO SCH (09:47)
[2019-03-01] MEDS: LIDOCAINE 5% TOPICAL PATCH TP SCH (09:47)
== END 2019-03-01 16:35 | disposition home or self-care (01) | DRG 895 ==
LOC: YASAS 22:23 → Y3E 23:45
PROVIDERS: ADMIT Neuromusculoskeletal Medicine & OMM; ATTEND Neuromusculoskeletal Medicine & OMM
PROC: HZ42ZZZ Group Counseling for Substance Abuse Treatment, Cognitive-Behavioral (ICD-10-PCS; principal; 2019-02-09)
DX: F13.20 Sedative, hypnotic or anxiolytic dependence, uncomplicated (principal); F19.280 Other psychoactive substance dependence with psychoactive substance-induced anxiety disorder; F19.282 Other psychoactive substance dependence with psychoactive substance-induced sleep disorder; I10 Essential (primary) hypertension; K21.9 Gastro-esophageal reflux disease without esophagitis; K29.70 Gastritis, unspecified, without bleeding; L98.8 Other specified disorders of the skin and subcutaneous tissue; M81.0 Age-related osteoporosis without current pathological fracture; Z86.69 Personal history of other diseases of the nervous system and sense organs; Z88.0 Allergy status to penicillin
CPT/HCPCS: 36415; 80053; 81003; 81025; 85027; 86593; 99282-25